=== PATIENT | male | born 1950 | race Caucasian/White ===

== ENCOUNTER → 2017-04-30 | Outpatient (CLI) | payer MEDICARE ==
--- NOTE | 2017-04-30 11:46 | US ---
EXAMINATION TYPE: US duplex aorta DATE OF EXAM: 04/30/2017 COMPARISON: NONE CLINICAL HISTORY: Z78.9 other specific health status. Previous smoker- stopped 25 years ago, no pain, no HTN EXAM MEASUREMENTS: Abdominal Aorta: Proximal: 2.2 x 1.8 cm Mid: 1.5 x 1.9 cm Distal: 1.2 x 1.6 cm Bifurcation: Right - 0.5 x 0.8 cm Left- 0.8 x 0.8 cm No AAA identified as visualized. Grayscale, color Doppler imaging performed of the abdominal aorta IMPRESSION: Abdominal aortic aneurysm is not evident.
--- NOTE | 2017-04-30 11:51 | EST ---
DATE OF SERVICE: 04/30/2017 AGE: 67Y SEX: M HT: 67 WT: 125 lbs. Protocol Rubio: X Other: Stage: II Dur. of Exercise: 7 minutes *Heart Rate Blood Pressure *Rest: 63 Rest: 153/86 * *Max. Achieved: 145 Maximum BP: 206/82 85% PMHR: 128 100% PMHR: 151 *METS: 8.7 INDICATION OF THE STUDY: Chest pain. MEDICATIONS: STRESS DATA: Pretesting physical examination showed the heart rate of 63, pressure is 153/86 mmHg. Baseline EKG showed sinus mechanism. The patient exercised on the treadmill according to Rubio protocol for a total 7 and achieved 8.7 METs. Max heart rate was 145, which is about 96% of maximum predicted heart rate. Maximum blood pressure was 206/82 mmHg. Clinically, the patient did not have any symptoms of chest pain or discomfort during the testing or in the recovery time. The EKG showed about 0.[address] segment changes. CONCLUSION: 1. Excellent exercise capacity. 2. Mildly abnormal EKG in response to exercise, but the changes did not meet the criteria for ischemia.
== END | disposition home or self-care (01) ==
LOC: RADUSMAIN 08:56
PROVIDERS: ATTEND Family Medicine
DX: Z13.6 Encounter for screening for cardiovascular disorders (principal); R06.00 Dyspnea, unspecified
CPT/HCPCS: 93017; 93979

== ENCOUNTER → 2017-05-23 | Outpatient (CLI) | payer MEDICARE ==
--- NOTE | 2017-05-25 12:45 | ECHOF ---
Referral Reason:R06.00 dyspnea MEASUREMENTS -------- HEIGHT: 170.2 cm WEIGHT: 59.0 kg BP: IVSd: 1.1 cm (0.6 - 1.1) LVIDd: 4.1 cm (3.9 - 5.3) LVPWd: 1.0 cm (0.6 - 1.1) LVIDs: 2.6 cm LA Diam: 2.7 cm (2.7 - 3.8) RVIDd: 2.1 cm (< 3.3) LAESV Index (A-L): 17.45 ml/m Ao Diam: 3.3 cm (2.0 - 3.7) LA Diam: 2.9 cm (2.7 - 3.8) AV Cusp: 1.6 cm (1.5 - 2.6) EPSS: 0.4 cm MV E Pako: 0.73 m/s MV DecT: 139 ms MV A Pako: 0.59 m/s MV E/A Ratio: 1.24 RAP: 5.00 mmHg RVSP: 18.32 mmHg MV EF SLOPE: 175.73 mm/s (70 - 150) MV EXCURSION: 23.12 mm (> 18.000) FINDINGS -------- Sinus rhythm. This was a technically good study. LV size, wall thickness and systolic function are normal, with an EF greater than 55%. The right ventricle is normal in size. The right atrial size is normal. There is mild aortic valve sclerosis. There is no evidence of aortic regurgitation. Mild mitral regurgitation is present. Mild prolapse of the posterior mitral valve leaflet. Mild tricuspid regurgitation present. There is no evidence of pulmonary hypertension. The right ventricular systolic pressure, as measured by Doppler, is 18.32mmHg. There is no pulmonic regurgitation present. The aortic root size is normal. There is no pericardial effusion. CONCLUSIONS -------- 1. LV size, wall thickness and systolic function are normal, with an EF greater than 55%. 2. There is no pericardial effusion. 3. There is mild aortic valve sclerosis. 4. Mild mitral regurgitation is present. 5. Mild prolapse of the posterior mitral valve leaflet. 6. Mild tricuspid regurgitation present. 7. There is no evidence of pulmonary hypertension. 8. The right ventricular systolic pressure, as measured by Doppler, is 18.32mmHg. 9. There is no pulmonic regurgitation present. 10. The aortic root size is normal. BOTTLE FILLER: Dang Cole RDCS
== END | disposition home or self-care (01) ==
LOC: RADECHMAIN 12:57
PROVIDERS: ATTEND Family Medicine
DX: I08.1 Rheumatic disorders of both mitral and tricuspid valves (principal)
CPT/HCPCS: 93306

== ENCOUNTER 2018-02-09 17:17 | Emergency (ER) | payer MEDICARE ==
[2018-02-09 18:05] VITALS: TEMP 99.4
[2018-02-09 18:36] LABS: Basophils % (A) 1 %; Eosinophils # (A) 0.1 k/uL (0-0.7); Eosinophils % (A) 1 %; HCT 38.7 % (39.0-53.0); Lymphocytes # (A) 1.6 k/uL (1.0-4.8); Lymphocytes % (A) 23 %; MCH 31.9 pg (25.0-35.0); MCHC 33.6 g/dL (31.0-37.0); Mean Platelet Volume 7.6; Monocytes # (A) 0.5 k/uL (0-1.0); Monocytes % (A) 7 %; Neutrophils # (A) 4.5 k/uL (1.3-7.7); Neutrophils % (A) 64 %; Platelet Count 380 k/uL (150-450); RBC 4.07 m/uL (4.30-5.90); RDW 13.5 % (11.5-15.5)
[2018-02-09 18:46] LABS: ALT 107 U/L (21-72); AST 136 U/L (17-59); Albumin 4.1 g/dL (3.5-5.0); Alkaline Phosphatase 72 U/L (38-126); Anion Gap 12 mmol/L; Blood Urea Nitrogen 23 mg/dL (9-20); Calcium 9.8 mg/dL (8.4-10.2); Carbon Dioxide 27 mmol/L (22-30); Chloride 103 mmol/L (98-107); Glucose 102 mg/dL (74-99); Potassium 4.2 mmol/L (3.5-5.1); Sodium 142 mmol/L (137-145); Total Bilirubin 0.6 mg/dL (0.2-1.3); Total Protein 7.9 g/dL (6.3-8.2)
[2018-02-09] MEDS ORDERED: IPRATROPIUM-ALBUTEROL 3 ML NEB INHALATION STA (18:59)
--- NOTE | 2018-02-09 19:02 | ED ---
General Adult HPI - General Chief complaint: Upper Respiratory Infection Stated complaint: SOB, COUGH, LOW OX Time Seen by Provider: 02/09/18 18:54 Source: patient, RN notes reviewed Mode of arrival: ambulatory Limitations: no limitations - History of Present Illness Initial comments: 67-year-old male presents to the emergency department with a chief complaint of cough. He's had a cough since Friday. He was seen at urgent care he started a nasal spray and doxycycline. He states he continues to have this cough. He states that he is getting a little short of breath with it. He states that he is not having any sputum production. He denies any high fevers. He states that he was concerned due to the continued cough and the fact he does not feels if he is getting much better so he thought that he should be seen. He denies any other symptoms at this time.Patient denies any recent chest pain, back pain , abdominal pain, nausea vomiting, numbness or tingling, dysuria or hematuria, constipation or diarrhea, headaches or visual changes, or any other current symptoms. - Related Data Home Medications Medication Instructions Recorded Confirmed Ascorbic Acid [Vitamin C] 1,000 mg PO DAILY 02/09/18 02/09/18 Cholecalciferol [Vitamin D3] 1,000 unit PO DAILY 02/09/18 02/09/18 Doxycycline Hyclate 100 mg PO BID 02/09/18 02/09/18 Ipratropium Bartlett 0.06%Nasal 1 spray EA NOSTRIL BID 02/09/18 02/09/18 [Atrovent Nasal 0.06%] Previous Rx's Medication Instructions Recorded predniSONE 50 mg PO DAILY #5 tab 02/09/18 Allergies Allergy/AdvReac Type Severity Reaction Status Date / Time No Known Allergies Allergy Verified 02/09/18 19:05 Review of Systems ROS Statement: Those systems with pertinent positive or pertinent negative responses have been documented in the HPI. ROS Other: All systems not noted in ROS Statement are negative. Past Medical History Past Medical History: No Reported History History of Any Multi-Drug Resistant Organisms: None Reported Past Surgical History: Appendectomy, Tonsillectomy Additional Past Surgical History / Comment(s): spleen, non-hodgkins lymphona Past Psychological History: No Psychological Hx Reported Smoking Status: Former smoker Past Alcohol Use History: None Reported Past Drug Use History: None Reported General Exam - General Exam Comments Initial Comments: General: The patient is awake and alert, in no distress, and does not appear acutely ill. Eye: Pupils are equal, round and reactive to light, extra-ocular movements are intact; there is normal conjunctiva bilaterally. No signs of icterus. Ears, nose, mouth and throat: There are moist mucous membranes. Neck: The neck is supple, there is no tenderness. Cardiovascular: There is a regular rate and rhythm. No murmur, rub or gallop is appreciated. Respiratory: Lungs are clear to auscultation, respirations are non-labored, breath sounds are equal. minimal wheezes, no stridor, rales, or rhonchi. Gastrointestinal: Soft, non-distended, non-tender abdomen without masses or organomegaly noted. There is no rebound or guarding present. No CVA tenderness. Bowel sounds are unremarkable. Back: There is no tenderness to palpation in the midline. There is no obvious deformity. No rashes noted. Musculoskeletal: Normal ROM, no tenderness, There is no pedal edema. There is no calf tenderness or swelling. Sensation intact. Pulses equal bilaterally 2+. Neurological: CN II-XII intact, There are no obvious motor or sensory deficits. Coordination appears grossly intact. Speech is normal. Skin: Skin is warm and dry and no rashes or lesions are noted. Psychiatric: Cooperative, appropriate mood & affect, normal judgment. Limitations: no limitations Course Vital Signs 02/09/18 02/09/18 02/09/18 18:01 19:41 19:49 Temperature 99.4 F Pulse Rate 77 76 80 Respiratory 18 Rate Blood Pressure 159/81 O2 Sat by Pulse 98 Oximetry EKG Findings - EKG Comments: EKG Findings:: Normal sinus rhythm with sinus arrhythmia, ventricular 63, IN interval 134, QRS duration 88 Medical Decision Making - Medical Decision Making 67-year-old male presents for cough and shortness of breath. At this time with the cough and the wheezing and the improvement with the breathing treatment. X- rays reviewed. At this time we discussed most likely acute bronchitis. We did discuss return parameters and follow-up and all questions. Patient stated that he understood and he is given this plan. He states he is feeling much better. He has an inhaler at home that he states he will start using. We will add steroids. Patient is in agreement this plan all questions have been answered. He will be discharged. - Lab Data Result diagrams: 02/09/18 18:23 02/09/18 18:23 Lab Results 02/09/18 02/09/18 02/09/18 Range/Units 18:23 18:23 19:10 WBC 7.0 (3.8-10.6) k/uL RBC 4.07 L (4.30-5.90) m/uL Hgb 13.0 (13.0-17.5) gm/dL Hct 38.7 L (39.0-53.0) % MCV 95.0 (80.0-100.0) fL MCH 31.9 (25.0-35.0) pg MCHC 33.6 (31.0-37.0) g/dL RDW 13.5 (11.5-15.5) % Plt Count 380 (150-450) k/uL Neutrophils % 64 % Lymphocytes % 23 % Monocytes % 7 % Eosinophils % 1 % Basophils % 1 % Neutrophils # 4.5 (1.3-7.7) k/uL Lymphocytes # 1.6 (1.0-4.8) k/uL Monocytes # 0.5 (0-1.0) k/uL Eosinophils # 0.1 (0-0.7) k/uL Basophils # 0.0 (0-0.2) k/uL Sodium 142 (137-145) mmol/L Potassium 4.2 (3.5-5.1) mmol/L Chloride 103 (98-107) mmol/L Carbon Dioxide 27 (22-30) mmol/L Anion Gap 12 mmol/L BUN 23 H (9-20) mg/dL Creatinine 0.70 (0.66-1.25) mg/dL Est GFR (CKD-EPI)AfAm >90 (>60 ml/min/1.73 sqM) Est GFR (CKD-EPI)NonAf >90 (>60 ml/min/1.73 sqM) Glucose 102 H (74-99) mg/dL Calcium 9.8 (8.4-10.2) mg/dL Total Bilirubin 0.6 (0.2-1.3) mg/dL AST 136 H (17-59) U/L ALT 107 H (21-72) U/L Alkaline Phosphatase 72 (38-126) U/L Total Protein 7.9 (6.3-8.2) g/dL Albumin 4.1 (3.5-5.0) g/dL Influenza Type A RNA Not Detected (Not Detectd) Influenza Type B (PCR) Not Detected (Not Detectd) - Radiology Data Radiology results: report reviewed, image reviewed Disposition Clinical Impression: Acute bronchitis Disposition: HOME SELF-CARE Condition: Stable Instructions: Acute Bronchitis (ED) Additional Instructions: Please use medication as discussed. Please follow up with family doctor if symptoms have not improved over the next two days. Please return to the emergency room if your symptoms increase or worsen or for any other concerns. Prescriptions: predniSONE 50 mg PO DAILY #5 tab Referrals: Roby Connolly MD [Primary Care Provider] - 1-2 days Time of Disposition: 19:58
--- NOTE | 2018-02-09 19:12 | XR ---
EXAMINATION TYPE: XR chest 2V DATE OF EXAM: 02/09/2018 COMPARISON: NONE HISTORY: Cough TECHNIQUE: Frontal and lateral views of the chest are obtained. FINDINGS: There is no heart failure nor confluent pneumonic infiltrate. There is coarsening of inter stitial pulmonary markings. Heart size is normal. Mediastinum is normal. There is no pleural effusion . There is mild pulmonary hyperinflation. IMPRESSION: COPD and pulmonary fibrosis. Normal heart.
[2018-02-09 20:09] VITALS: RESP 20
[2018-02-09 20:11] VITALS: BP 159/73; PULSE 94
== END 2018-02-09 20:11 | disposition home or self-care (01) ==
LOC: EC 17:17
DX: J20.9 Acute bronchitis, unspecified (principal); Z87.891 Personal history of nicotine dependence; Z85.72 Personal history of non-Hodgkin lymphomas; Z79.899 Other long term (current) drug therapy
CPT/HCPCS: 36415; 71046; 80053; 85025; 87502; 93005; 94640; 99284

== ENCOUNTER → 2020-05-30 | Outpatient (CLI) | payer MEDICARE ==
--- NOTE | 2020-05-31 06:58 | US ---
EXAMINATION TYPE: US kidneys/renal and bladder DATE OF EXAM: 05/30/2020 COMPARISON: NONE CLINICAL HISTORY: R94.4 abn renal function. Abnormal renal function test EXAM MEASUREMENTS: Right Kidney: 8.4 x 3.0 x 3.2 cm Left Kidney: 9.2 x 4.5 x 3.7 cm Right Kidney: Cortical thinning Left Kidney: No hydronephrosis or masses seen Bladder: wnl Bilateral Jets seen: Yes There is no evidence for hydronephrosis at this point in time. No nephrolithiasis is seen. No arvind s are identified. The urinary bladder is anechoic. Bilateral ureteral jets are seen. IMPRESSION: Renal cortical thinning noted bilaterally right greater than left. Otherwise unremarkable study.
== END | disposition home or self-care (01) ==
LOC: RADUSWWP 15:52
PROVIDERS: ATTEND Family Medicine
DX: N28.89 Other specified disorders of kidney and ureter (principal)
CPT/HCPCS: 76770

== ENCOUNTER 2021-10-03 20:03 | Emergency (ER) | payer MEDICARE ==
[2021-10-03 20:22] VITALS: TEMP 97.9
[2021-10-03] MEDS ORDERED: IPRATROPIUM-ALBUTEROL 3 ML NEB INHALATION STA (21:25)
[2021-10-03] MEDS ORDERED: SODIUM CHLORIDE 0.9% 1,000 ML IV STA (21:25)
[2021-10-03] MEDS ORDERED: hydrALAZINE HCL 20 MG/ML 1 ML VIAL IVP STA (21:26)
--- NOTE | 2021-10-03 21:26 | ED ---
SOB HPI - General Chief Complaint: Shortness of Breath Stated Complaint: High BP, SOB,CKD Time Seen by Provider: 10/03/21 21:20 Source: patient, RN notes reviewed, old records reviewed Mode of arrival: ambulatory Limitations: no limitations - History of Present Illness Initial Comments: This is a 71-year-old male DF for evaluation of shortness of breath. Patient states shortness of breath began afterblood pressure was significantly elevated any significant of concern for his kidney disease. History of stage IV kidney disease which is been progressively worsening. Patient states he's never had such elevated blood sugar today does admit to causing him anxiety and shortness of breath. Otherwise no recent significant symptoms, no chest pain or shortness of breath or abdominal pain. No fevers cough or congestion. Patient symptoms are relatively resolved upon arrival to the ER MD Complaint: shortness of breath, anxiety -: hour(s) Severity: moderate Severity scale (1-10): 4 Quality: dull Consistency: constant, now resolved Improves With: nothing Worsens With: nothing Known History Of: other (Kidney disease) Context: anxiety Associated Symptoms: denies other symptoms - Related Data Home Medications Medication Instructions Recorded Confirmed Cholecalciferol (Vitamin D3) 125 mcg PO DAILY 10/03/21 10/03/21 [Vitamin D3 (125 MCG = 5,000 IU)] Allergies Allergy/AdvReac Type Severity Reaction Status Date / Time No Known Allergies Allergy Verified 10/03/21 22:20 Review of Systems ROS Statement: Those systems with pertinent positive or pertinent negative responses have been documented in the HPI. ROS Other: All systems not noted in ROS Statement are negative. Past Medical History Past Medical History: Cancer, Renal Disease Additional Past Medical History / Comment(s): lymphoma, stage 4 kidney disease History of Any Multi-Drug Resistant Organisms: None Reported Past Surgical History: Appendectomy, Tonsillectomy Additional Past Surgical History / Comment(s): spleen, non-hodgkins lymphona Past Psychological History: No Psychological Hx Reported Smoking Status: Former smoker Past Alcohol Use History: None Reported Past Drug Use History: None Reported General Exam Limitations: no limitations General appearance: alert, in no apparent distress Head exam: Present: atraumatic, normocephalic, normal inspection Eye exam: Present: normal appearance, PERRL, EOMI. Absent: scleral icterus, conjunctival injection, periorbital swelling ENT exam: Present: normal exam, mucous membranes moist Neck exam: Present: normal inspection. Absent: tenderness, meningismus, lymphadenopathy Respiratory exam: Present: normal lung sounds bilaterally. Absent: respiratory distress, wheezes, rales, rhonchi, stridor Cardiovascular Exam: Present: regular rate, normal rhythm, normal heart sounds. Absent: systolic murmur, diastolic murmur, rubs, gallop, clicks GI/Abdominal exam: Present: soft, normal bowel sounds. Absent: distended, tenderness, guarding, rebound, rigid Extremities exam: Present: normal inspection, full ROM, normal capillary refill. Absent: tenderness, pedal edema, joint swelling, calf tenderness Back exam: Present: normal inspection Neurological exam: Present: alert, oriented X3, CN II-XII intact Psychiatric exam: Present: normal affect, normal mood Skin exam: Present: warm, dry, intact, normal color. Absent: rash Course Vital Signs 10/03/21 10/03/21 10/03/21 20:19 20:30 21:53 Temperature 97.9 F Pulse Rate 88 58 L Respiratory 20 18 Rate Blood Pressure 185/88 O2 Sat by Pulse 98 Oximetry 10/03/21 10/03/21 10/03/21 21:59 22:27 23:03 Temperature Pulse Rate 80 82 Respiratory 18 Rate Blood Pressure 164/83 145/73 O2 Sat by Pulse 98 Oximetry 10/04/21 00:49 Temperature Pulse Rate 71 Respiratory 18 Rate Blood Pressure 148/80 O2 Sat by Pulse 97 Oximetry - Reevaluation(s) Reevaluation #1: 10/04/21 02:24 Medical record is reviewed Reevaluation #2: 10/04/21 02:24 Patient remains asymptomatic here in the ER Reevaluation #3: 10/04/21 02:24 Patient is informed results questions are answered Medical Decision Making - Medical Decision Making 71 male to the emergency department for evaluation. Patient came in for shortness of breath elevated blood pressure, blood pressures currently resolved and patient can be discharged home - Lab Data Result diagrams: 10/03/21 21:45 10/03/21 21:45 Lab Results 10/03/21 10/03/21 10/03/21 Range/Units 21:45 21:45 21:45 WBC 5.6 (3.8-10.6) k/uL RBC 3.71 L (4.30-5.90) m/uL Hgb 11.8 L (13.0-17.5) gm/dL Hct 36.8 L (39.0-53.0) % MCV 99.3 (80.0-100.0) fL MCH 31.9 (25.0-35.0) pg MCHC 32.1 (31.0-37.0) g/dL RDW 14.0 (11.5-15.5) % Plt Count 263 (150-450) k/uL MPV 8.1 Neutrophils % 62 % Lymphocytes % 24 % Monocytes % 7 % Eosinophils % 2 % Basophils % 1 % Neutrophils # 3.5 (1.3-7.7) k/uL Lymphocytes # 1.3 (1.0-4.8) k/uL Monocytes # 0.4 (0-1.0) k/uL Eosinophils # 0.1 (0-0.7) k/uL Basophils # 0.1 (0-0.2) k/uL PT 9.9 (9.0-12.0) sec INR 0.9 (<1.2) APTT 21.6 L (22.0-30.0) sec Sodium 138 (137-145) mmol/L Potassium 4.5 (3.5-5.1) mmol/L Chloride 105 (98-107) mmol/L Carbon Dioxide 24 (22-30) mmol/L Anion Gap 9 mmol/L BUN 37 H (9-20) mg/dL Creatinine 2.00 H (0.66-1.25) mg/dL Est GFR (CKD-EPI)AfAm 37 (>60 ml/min/1.73 sqM) Est GFR (CKD-EPI)NonAf 32 (>60 ml/min/1.73 sqM) Glucose 113 H (74-99) mg/dL Plasma Lactic Acid Corby (0.7-2.0) mmol/L Calcium 9.7 (8.4-10.2) mg/dL Magnesium 1.8 (1.6-2.3) mg/dL Total Bilirubin 0.3 (0.2-1.3) mg/dL AST 22 (17-59) U/L ALT 9 (4-49) U/L Alkaline Phosphatase 60 (38-126) U/L Troponin I (0.000-0.034) ng/mL NT-Pro-B Natriuret Pep pg/mL Total Protein 7.8 (6.3-8.2) g/dL Albumin 4.3 (3.5-5.0) g/dL Coronavirus (PCR) (Not Detectd) 10/03/21 10/03/21 10/03/21 Range/Units 21:45 21:45 21:45 WBC (3.8-10.6) k/uL RBC (4.30-5.90) m/uL Hgb (13.0-17.5) gm/dL Hct (39.0-53.0) % MCV (80.0-100.0) fL MCH (25.0-35.0) pg MCHC (31.0-37.0) g/dL RDW (11.5-15.5) % Plt Count (150-450) k/uL MPV Neutrophils % % Lymphocytes % % Monocytes % % Eosinophils % % Basophils % % Neutrophils # (1.3-7.7) k/uL Lymphocytes # (1.0-4.8) k/uL Monocytes # (0-1.0) k/uL Eosinophils # (0-0.7) k/uL Basophils # (0-0.2) k/uL PT (9.0-12.0) sec INR (<1.2) APTT (22.0-30.0) sec Sodium (137-145) mmol/L Potassium (3.5-5.1) mmol/L Chloride (98-107) mmol/L Carbon Dioxide (22-30) mmol/L Anion Gap mmol/L BUN (9-20) mg/dL Creatinine (0.66-1.25) mg/dL Est GFR (CKD-EPI)AfAm (>60 ml/min/1.73 sqM) Est GFR (CKD-EPI)NonAf (>60 ml/min/1.73 sqM) Glucose (74-99) mg/dL Plasma Lactic Acid Corby 1.4 (0.7-2.0) mmol/L Calcium (8.4-10.2) mg/dL Magnesium (1.6-2.3) mg/dL Total Bilirubin (0.2-1.3) mg/dL AST (17-59) U/L ALT (4-49) U/L Alkaline Phosphatase (38-126) U/L Troponin I <0.012 (0.000-0.034) ng/mL NT-Pro-B Natriuret Pep 201 pg/mL Total Protein (6.3-8.2) g/dL Albumin (3.5-5.0) g/dL Coronavirus (PCR) (Not Detectd) 10/04/21 Range/Units 00:09 WBC (3.8-10.6) k/uL RBC (4.30-5.90) m/uL Hgb (13.0-17.5) gm/dL Hct (39.0-53.0) % MCV (80.0-100.0) fL MCH (25.0-35.0) pg MCHC (31.0-37.0) g/dL RDW (11.5-15.5) % Plt Count (150-450) k/uL MPV Neutrophils % % Lymphocytes % % Monocytes % % Eosinophils % % Basophils % % Neutrophils # (1.3-7.7) k/uL Lymphocytes # (1.0-4.8) k/uL Monocytes # (0-1.0) k/uL Eosinophils # (0-0.7) k/uL Basophils # (0-0.2) k/uL PT (9.0-12.0) sec INR (<1.2) APTT (22.0-30.0) sec Sodium (137-145) mmol/L Potassium (3.5-5.1) mmol/L Chloride (98-107) mmol/L Carbon Dioxide (22-30) mmol/L Anion Gap mmol/L BUN (9-20) mg/dL Creatinine (0.66-1.25) mg/dL Est GFR (CKD-EPI)AfAm (>60 ml/min/1.73 sqM) Est GFR (CKD-EPI)NonAf (>60 ml/min/1.73 sqM) Glucose (74-99) mg/dL Plasma Lactic Acid Corby (0.7-2.0) mmol/L Calcium (8.4-10.2) mg/dL Magnesium (1.6-2.3) mg/dL Total Bilirubin (0.2-1.3) mg/dL AST (17-59) U/L ALT (4-49) U/L Alkaline Phosphatase (38-126) U/L Troponin I (0.000-0.034) ng/mL NT-Pro-B Natriuret Pep pg/mL Total Protein (6.3-8.2) g/dL Albumin (3.5-5.0) g/dL Coronavirus (PCR) Not Detected (Not Detectd) - EKG Data -: EKG Interpreted by Me (EKG shows sinus rhythm 66 GA 154 QRS 78 QTc 402) - Radiology Data Radiology results: report reviewed (Chest x-rays negative for acute disease), image reviewed Disposition Clinical Impression: Hypertension Disposition: HOME SELF-CARE Condition: Good Instructions (If sedation given, give patient instructions): Hypertension (ED) Is patient prescribed a controlled substance at d/c from ED?: No Referrals: Roby Connolly MD [Primary Care Provider] - 1-2 days
[2021-10-03 22:09] VITALS: RESP 18
[2021-10-03 22:10] LABS: Basophils # (A) 0.1 k/uL (0-0.2); Basophils % (A) 1 %; Eosinophils # (A) 0.1 k/uL (0-0.7); Eosinophils % (A) 2 %; HCT 36.8 % (39.0-53.0); HGB 11.8 gm/dL (13.0-17.5); Lymphocytes # (A) 1.3 k/uL (1.0-4.8); Lymphocytes % (A) 24 %; MCH 31.9 pg (25.0-35.0); MCHC 32.1 g/dL (31.0-37.0); MCV 99.3 fL (80.0-100.0); Mean Platelet Volume 8.1; Monocytes # (A) 0.4 k/uL (0-1.0); Monocytes % (A) 7 %; Neutrophils # (A) 3.5 k/uL (1.3-7.7); Neutrophils % (A) 62 %; Platelet Count 263 k/uL (150-450); RBC 3.71 m/uL (4.30-5.90); WBC 5.6 k/uL (3.8-10.6)
--- NOTE | 2021-10-03 22:12 | XR ---
EXAMINATION TYPE: XR chest 2V DATE OF EXAM: 10/03/2021 COMPARISON: NONE HISTORY: Difficulty breathing TECHNIQUE: 2 views FINDINGS: Heart is normal. Lungs are clear of infiltrate. There is no heart failure. Costophrenic ang les are clear. There are chest leads. Bony thorax is intact IMPRESSION: No active cardiopulmonary disease. Normal heart. No change.
[2021-10-03] MEDS ORDERED: ONDANSETRON 4 MG/2 ML VIAL IVP STA (22:20)
[2021-10-03 22:23] LABS: Albumin 4.3 g/dL (3.5-5.0); Calcium 9.7 mg/dL (8.4-10.2); Magnesium 1.8 mg/dL (1.6-2.3); Potassium 4.5 mmol/L (3.5-5.1); Total Bilirubin 0.3 mg/dL (0.2-1.3); Total Protein 7.8 g/dL (6.3-8.2)
[2021-10-03 22:26] LABS: INR 0.9 (<1.2); Partial Thromboplastin Time 21.6 sec (22.0-30.0); Prothrombin Time 9.9 sec (9.0-12.0)
[2021-10-04 00:50] VITALS: BP 148/80; PULSE 71
== END 2021-10-04 00:50 | disposition home or self-care (01) ==
LOC: EC 20:03
DX: I10 Essential (primary) hypertension (principal); R06.02 Shortness of breath; Z87.891 Personal history of nicotine dependence; Z20.822 Contact with and (suspected) exposure to COVID-19
CPT/HCPCS: 36415; 94640; 93005; 83880; 80053; 83605; 83735; 84484; 85025; 85610; 85730; 87635; 71046; 99285; 96374; 96375; 96361; J0360; J2405

== ENCOUNTER → 2021-11-16 | Outpatient (CLI) | payer MEDICARE ==
--- NOTE | 2021-11-16 15:22 | CT ---
EXAMINATION TYPE: CT brain wo con DATE OF EXAM: 11/16/2021 COMPARISON: None HISTORY: weakness, left arm numbness CT DLP: 978.2 mGycm Automated exposure control for dose reduction was used. FINDINGS: Moderate generalized degenerative change with low-attenuation in the white matter. No acute hemorrhag e or mass effect. Calvarium intact. Orbits are symmetric. Craniocervical junction maintained. Sella turcica has a normal appearance. IMPRESSION: DEGENERATIVE AND NONSPECIFIC WHITE MATTER CHANGES MOST TYPICAL OF REMOTE ISCHEMIA.
== END | disposition home or self-care (01) ==
LOC: RADCTMAIN 14:59
PROVIDERS: ATTEND Family Medicine
DX: R90.82 White matter disease, unspecified (principal)
CPT/HCPCS: 70450

== ENCOUNTER → 2022-05-06 | Outpatient (CLI) | payer MEDICARE ==
--- NOTE | 2022-05-06 12:50 | US ---
EXAMINATION TYPE: US carotid duplex BILAT DATE OF EXAM: 05/06/2022 COMPARISON: NONE CLINICAL HISTORY: 72-year-old male I63.9 CEREBRAL INFARCTION, UNSPECIFIED. CVA. TECHNIQUE: Carotid duplex ultrasound examination. Indirect Doppler criteria was utilized. FINDINGS: EXAM MEASUREMENTS: RIGHT: Peak Systolic Velocity (PSV) cm/sec ----- Right CCA: 80.8 ----- Right ICA: 117.1 ----- Right ECA: 112.8 ICA/CCA ratio: 1.4 RIGHT: End Diastole cm/sec ----- Right CCA: 22.7 ----- Right ICA: 38.7 ----- Right ECA: 11 LEFT: Peak Systolic Velocity (PSV) cm/sec ----- Left CCA: 95.3 ----- Left ICA: 121.5 ----- Left ECA: 85.2 ICA/CCA ratio: 1.3 LEFT: End Diastole cm/sec ----- Left CCA: 24.1 ----- Left ICA: 45.9 ----- Left ECA: 11 VERTEBRALS (direction of flow): Right Vertebral: Antegrade Left Vertebral: Antegrade Rhythm: Normal Mail Technician notes: No elevated velocities IMPRESSION: No hemodynamically significant internal carotid artery stenosis on either side. Criteria for Assigning % of Stenosis / Diameter reduction (Estimation based on the indirect measurements of the internal carotid artery velocities (ICA PSV). 1. Normal (no stenosis)=ICA PSV < 125 cm/s: ratio < 2.0: ICA EDV<40 cm/s. 2. Less than 50% stenosis=ICA PSV < 125 cm/s: ratio < 2.0: ICA EDV<40 cm/s. 3. 50 to 69% stenosis=ICA PSV of 125 to 230 cm/s: ration 2.0 ? 4.0: ICA EDV 40-100 cm/s. 4. Greater than 70% stenosis to near occlusion= ICA PSV > 230 cm/s: ratio > 4.0: ICA EDV > 100 cm/s. 5. Near occlusion= ICA PSV velocities may be low or undetectable: variable ratio and ICA EDV. 6. Total occlusion=unable to detect flow.
== END | disposition home or self-care (01) ==
LOC: RADUSWWP 08:50
PROVIDERS: ATTEND Psychiatry & Neurology Neurology
DX: I63.89 Other cerebral infarction (principal)
CPT/HCPCS: 93880

== ENCOUNTER 2022-06-18 21:56 | Emergency (ER) | payer MEDICARE ==
[2022-06-18 22:20] VITALS: RESP 16; TEMP 98.2
--- NOTE | 2022-06-18 22:54 | ED ---
Extremity Problem HPI - General Chief complaint: Extremity Problem,Nontraumatic Stated complaint: Elevated D-Dimer Time Seen by Provider: 06/18/22 22:23 Source: patient Mode of arrival: ambulatory Limitations: no limitations - Related Data Home Medications Medication Instructions Recorded Confirmed Cholecalciferol (Vitamin D3) 125 mcg PO DAILY 10/03/21 10/03/21 [Vitamin D3 (125 MCG = 5,000 IU)] Allergies Allergy/AdvReac Type Severity Reaction Status Date / Time No Known Allergies Allergy Verified 06/18/22 22:17 Review of Systems ROS Statement: Those systems with pertinent positive or pertinent negative responses have been documented in the HPI. ROS Other: All systems not noted in ROS Statement are negative. Past Medical History Past Medical History: Cancer, Renal Disease Additional Past Medical History / Comment(s): lymphoma, stage 4 kidney disease History of Any Multi-Drug Resistant Organisms: None Reported Past Surgical History: Appendectomy, Tonsillectomy Additional Past Surgical History / Comment(s): spleen, non-hodgkins lymphona Past Psychological History: No Psychological Hx Reported Smoking Status: Former smoker Past Alcohol Use History: None Reported Past Drug Use History: None Reported General Exam Limitations: no limitations Course Vital Signs 06/18/22 06/18/22 22:18 23:49 Temperature 98.2 F Pulse Rate 90 74 Respiratory 16 Rate Blood Pressure 149/81 134/75 O2 Sat by Pulse 97 97 Oximetry Disposition Clinical Impression: Bilateral leg pain Disposition: HOME SELF-CARE Condition: Good Instructions (If sedation given, give patient instructions): Leg Pain (ED) Is patient prescribed a controlled substance at d/c from ED?: No Referrals: Roby Connolly MD [Primary Care Provider] - 1-2 days
--- NOTE | 2022-06-18 23:54 | US ---
EXAMINATION TYPE: US venous doppler duplex LE DATE OF EXAM: 06/18/2022 10:54 PM COMPARISON: NONE CLINICAL HISTORY: DVT. Elevated D-Dimer, patient on blood thinners SIDE PERFORMED: Bilateral TECHNIQUE: The lower extremity deep venous system is examined utilizing real time linear array sonog demond with graded compression, doppler sonography and color-flow sonography. VESSELS IMAGED: Common Femoral Vein Deep Femoral Vein Greater Saphenous Vein * Femoral Vein Popliteal Vein Small Saphenous Vein * Proximal Calf Veins (* superficial vessels) Right Leg: Appears negative for DVT Left Leg: Appears negative for DVT IMPRESSION: No evidence of deep vein thrombosis in both legs.
[2022-06-19 00:29] VITALS: BP 131/79; PULSE 81
== END 2022-06-19 00:29 | disposition home or self-care (01) ==
LOC: EC 21:56
DX: M79.604 Pain in right leg (principal); M79.605 Pain in left leg; Z87.891 Personal history of nicotine dependence
CPT/HCPCS: 93970; 99283

== ENCOUNTER 2023-08-06 07:19 | Day surgery (SDC) | payer MEDICARE ==
[2023-08-06] MEDS ORDERED: LACTATED RINGERS 1,000 ML IV ONE (07:35)
[2023-08-06] MEDS ORDERED: LIDOCAINE 1% (10MG/ML) FOR IV START INTRADERMA PRN (07:36)
[2023-08-06] MEDS ORDERED: LACTATED RINGERS 1,000 ML IV SCH (07:36)
[2023-08-06 07:41] VITALS: RESP 18; TEMP 97
[2023-08-06] MEDS ORDERED: LIDOCAINE 2% INJ 20 MG/ML (2 ML VIAL) ONE (08:14)
[2023-08-06] MEDS ORDERED: PROPOFOL 10 MG/ML 20 ML VIAL IV ONE (08:14)
--- NOTE | 2023-08-06 08:47 | P.PCN ---
Date of Procedure: 08/06/23 Procedure(s) Performed: Brief history: Patient is a pleasant 73-year-old white male scheduled for an elective upper endoscopy as well as colonoscopy as a part of evaluation of anemia and dysphagia to solids/GERD/screening for colon cancer Procedure performed: Esophagogastroduodenoscopy and dilation Colonoscopy with biopsy Preoperative diagnosis: GERD/intermittent dysphagia to solids Screening for colon cancer Anesthesia: MAC Procedure: After informed consent was obtained from the patient was brought into the endoscopy unit and IV sedation was administered by anesthesia under continuous monitoring. Initially upper endoscopy was done. The Olympus GF 160 video endoscope was inserted inserted into the mouth and esophagus intubated without any difficulty and was gradually advanced into the stomach and duodenum and carefully examined. The bulb and second part of the duodenum appeared normal. The scope was then withdrawn into the stomach adequately insufflated with air and upon careful examination the antrum and body, cardia and fundus appeared normal. The scope was then withdrawn into the esophagus. Small hiatal hernia noted. There was a distal esophageal Schatzki's ring identified and this was dilated using 15-18 mm TTS balloon in a sequential fashion for 60 seconds. Following the dilation there was some oozing at the site of dilation. The GE junction was located at 38 cm to the incisors. It appeared regular with no erythema erosions or ulcerations. Rest of the esophagus appeared normal. Patient tolerated the procedure well. At this time the patient continued to remain sedation. Initial digital rectal examination was normal. Olympus CF 160 video colonoscope was then inserted into the rectum and gradually advanced to the cecum without any difficulty. Careful examination was performed as the scope was gradually being withdrawn. The prep was excellent. The cecum, ascending colon, transverse colon, descending colon, sigmoid colon and rectum appeared normal. There was a 3 mm proximal rectal polyp that was removed by cold biopsy. Retroflexion was performed in the rectum and no lesions were noted. Patient tolerated the procedure well. Impression: 1. Upper endoscopy revealed small hiatal hernia and distal esophagus a status post balloon dilation using 15-18 mm TTS balloon as described above 2. Colonoscopy revealed 3 mm proximal rectal polyp status post cold biopsy. Rest of the colon appeared normal Recommendations: Findings of this examination were discussed with the patient as well as his family. He was advised to remain on clear liquids for 2 hours. Follow with the biopsy results and if the biopsy result, he can have a repeat colonoscopy in 5 years.
[2023-08-06 09:17] VITALS: BP 120/73; PULSE 81
== END 2023-08-06 09:38 | disposition home or self-care (01) ==
LOC: ORWHC2ENDO 07:19
PROVIDERS: ATTEND Internal Medicine Gastroenterology
DX: Z12.11 Encounter for screening for malignant neoplasm of colon (principal); K62.1 Rectal polyp; K44.9 Diaphragmatic hernia without obstruction or gangrene; K22.2 Esophageal obstruction; K21.9 Gastro-esophageal reflux disease without esophagitis; I12.9 Hypertensive chronic kidney disease with stage 1 through stage 4 chronic kidney disease, or unspecified chronic kidney disease; N18.4 Chronic kidney disease, stage 4 (severe); Z79.52 Long term (current) use of systemic steroids; Z79.899 Other long term (current) drug therapy; Z87.891 Personal history of nicotine dependence
CPT/HCPCS: 88305; 45380; 43249; J2704; J2001; C1726

== ENCOUNTER → 2023-12-29 | Outpatient (CLI) | payer MEDICARE ==
--- NOTE | 2023-12-29 10:45 | US ---
EXAMINATION TYPE: US arterial LE single level DATE OF EXAM: 12/29/2023 10:33 AM CLINICAL INDICATION: Male, 73 years old with history of I73.9 PERIPHERAL VASCULAR DISEASE; History of: Smoker: Former x 30 years Hypertension: Controlled Diabetic: No Hyperlipidemia: Uncontrolled TIA/CVA: Minor Previous Vascular Surgery: No CAD: No CO: No Vascular Ulcers: Few on right saldivar Claudication: Yes; Worsening over the last few months; Walks all day for work, Severe pain by the en d of the shift. Gangrene: No Doppler Waveforms: Right: Multiphasic, monophasic waveforms in the digit Left: Multiphasic, monophasic waveforms in the digit Pulse Volume Recording: NA Pressure Gradients: NA Right Brachial Pressure: 131 Left Brachial Pressure: 144 Ankle-Brachial Indices: Right: 1.20 Left: 1.16 Toe Brachial Indices: Right: ? NC Left: ? NC IMPRESSION: Normal ankle-brachial indices bilaterally.
== END | disposition home or self-care (01) ==
LOC: RADUSWWP 10:07
PROVIDERS: ATTEND Family Medicine
DX: I73.9 Peripheral vascular disease, unspecified (principal); I10 Essential (primary) hypertension; E78.5 Hyperlipidemia, unspecified; Z87.891 Personal history of nicotine dependence; Z86.73 Personal history of transient ischemic attack (TIA), and cerebral infarction without residual deficits
CPT/HCPCS: 93922

== ENCOUNTER 2024-06-10 21:52 | Inpatient (IN) | payer MEDICARE ==
[2024-06-10] MEDS: AMPICILLIN-SULBACTAM 3 GM in SODIUM CHLORIDE 0.9% 100 ML IVPB STA (23:00)
[2024-06-10 23:17] LABS: ALT 10 U/L (4-49); AST 36 U/L (17-59); African American GFR (CKD) 41 (>60 ml/min/1.73 sqM); Albumin 4.2 g/dL (3.5-5.0); Alkaline Phosphatase 65 U/L (38-126); Anion Gap 10 mmol/L; Blood Urea Nitrogen 37 mg/dL (9-20); Calcium 9.4 mg/dL (8.4-10.2); Carbon Dioxide 21 mmol/L (22-30); Chloride 108 mmol/L (98-107); Glucose 103 mg/dL (74-99); Non-African American GFR(CKD) 35 (>60 ml/min/1.73 sqM); Potassium 4.2 mmol/L (3.5-5.1); Sodium 139 mmol/L (137-145); Total Bilirubin 0.5 mg/dL (0.2-1.3); Total Protein 7.6 g/dL (6.3-8.2)
[2024-06-10 23:45] LABS: Basophils % (A) 1 %; Eosinophils % (A) 5 %; HCT 38.3 % (39.0-53.0); HGB 12.2 gm/dL (13.0-17.5); Lymphocytes % (A) 25 %; MCHC 31.9 g/dL (31.0-37.0); MCV 100.3 fL (80.0-100.0); Mean Platelet Volume 8.4; Monocytes % (A) 8 %; Neutrophils % (A) 59 %; Platelet Count 347 k/uL (150-450); RBC 3.81 m/uL (4.30-5.90); RDW 13.4 % (11.5-15.5); WBC 7.2 k/uL (3.8-10.6)
[2024-06-10 23:46] LABS: Basophils # (A) 0.1 k/uL (0-0.2); Eosinophils # (A) 0.3 k/uL (0-0.7); Lymphocytes # (A) 1.8 k/uL (1.0-4.8); Monocytes # (A) 0.5 k/uL (0-1.0); Neutrophils # (A) 4.2 k/uL (1.3-7.7)
--- NOTE | 2024-06-11 00:12 | ED ---
Animal Bite HPI - General Chief Complaint: Animal Bite Stated Complaint: Cat Bite Time Seen by Provider: 06/10/24 22:24 Source: patient Mode of arrival: ambulatory Limitations: no limitations - History of Present Illness Initial Comments: 74-year-old male presenting with chief complaint of cat bite. Patient was bitten by his cat 1 week ago. Over the weekend he noticed that it was getting red and painful. He started oral antibiotics from urgent care on Friday. He went back today because of worsening symptoms, he did have an incision made, however only blood was expressed. He was given a shot of Rocephin. Instructed to report to the ER if things did not improve by tomorrow. Patient was concerned due to worsening symptoms and presents tonight. No fevers. No nausea or vomiting. No red streaking of the arm. - Related Data Home Medications Medication Instructions Recorded Confirmed Cholecalciferol (Vitamin D3) 125 mcg PO DAILY 10/03/21 08/05/23 [Vitamin D3 (125 MCG = 5,000 IU)] Clopidogrel Bisulfate [Clopidogrel] 75 mg PO DAILY 08/05/23 08/05/23 Unk Multi Vitamin 1 tab PO DAILY 08/05/23 08/05/23 amLODIPine BESYLATE 5 mg PO DAILY 08/05/23 08/06/23 Allergies Allergy/AdvReac Type Severity Reaction Status Date / Time No Known Allergies Allergy Verified 08/06/23 07:41 Review of Systems ROS Statement: Those systems with pertinent positive or pertinent negative responses have been documented in the HPI. ROS Other: All systems not noted in ROS Statement are negative. Past Medical History Past Medical History: Cancer, Hypertension, Prostate Disorder, Renal Disease Additional Past Medical History / Comment(s): lymphoma ( tx with radiation, caused kidney issues), stage 4 kidney disease, polyneuropathy(finger and lips numb) History of Any Multi-Drug Resistant Organisms: None Reported Past Surgical History: Appendectomy, Cholecystectomy, Tonsillectomy Additional Past Surgical History / Comment(s): spleen, non-hodgkins lymphona, TURP. colonoscopy Past Anesthesia/Blood Transfusion Reactions: No Reported Reaction Past Psychological History: No Psychological Hx Reported Smoking Status: Former smoker - Past Family History Mother Family Medical History: Coronary Artery Disease (CAD) Sister(s) Additional Family Medical History / Comment(s): diverticulitis, kidney stones. another sister with kidney issues General Exam Limitations: no limitations General appearance: alert, in no apparent distress Head exam: Present: atraumatic, normocephalic Eye exam: Present: normal appearance, EOMI Neck exam: Present: normal inspection. Absent: meningismus Respiratory exam: Absent: respiratory distress Cardiovascular Exam: Present: regular rate Left Forearm Wrist exam: Present: full ROM, tenderness, swelling, erythema Neurological exam: Present: alert, oriented X3 Psychiatric exam: Present: normal affect, normal mood Skin exam: Present: erythema Course Vital Signs 06/10/24 06/11/24 22:02 02:40 Temperature 98.2 F 97.5 F L Pulse Rate 80 69 Respiratory 20 18 Rate Blood Pressure 152/79 136/78 O2 Sat by Pulse 97 97 Oximetry Medical Decision Making - Medical Decision Making Was pt. sent in by a medical professional or institution (, PA, [employer], urgent care, hospital, or penitentiary...) When possible be specific @ -No Did you speak to anyone other than the patient for history (EMS, parent, family, police, friend...)? What history was obtained from this source @ -No Did you review nursing and triage notes (agree or disagree)? Why? @ -I reviewed and agree with nursing and triage notes Were old charts reviewed (outside hosp., previous admission, EMS record, old EKG, old radiological studies, urgent care reports/EKG's, penitentiary records)? Report findings @ -No old charts were reviewed Differential Diagnosis (chest pain, altered mental status, abdominal pain women, abdominal pain men, vaginal bleeding, weakness, fever, dyspnea, syncope, headache, dizziness, GI bleed, back pain, seizure, CVA, palpatations, mental health, musculoskeletal)? @ -Differential includes cellulitis, abscess, allergic reaction, this is not an all-inclusive list EKG interpreted by me (3pts min.). @ -As above X-rays interpreted by me (1pt min.). @ -X-ray shows soft tissue swelling. CT interpreted by me (1pt min.). @ -None done U/S interpreted by me (1pt. min.). @ -None done What testing was considered but not performed or refused? (CT, X-rays, U/S, labs)? Why? @ -None What meds were considered but not given or refused? Why? @ -None Did you discuss the management of the patient with other professionals (professionals i.e. , PA, [employer], lab, RT, psych nurse, social service director, air pumper, teacher, transportation security officer, case maker)? Give summary @ -I spoke with Dr. Sterling who accepted admission Was smoking cessation discussed for >3mins.? @ -No Was critical care preformed (if so, how long)? @ -No Were there social determinants of health that impacted care today? How? (Homelessness, low income, unemployed, alcoholism, drug addiction, transportation, low edu. Level, literacy, decrease access to med. care, alf, rehab)? @ -No Was there de-escalation of care discussed even if they declined (Discuss DNR or withdrawal of care, Hospice)? DNR status @ -No What co-morbidities impacted this encounter? (DM, HTN, Smoking, COPD, CAD, Cancer, CVA, ARF, Chemo, Hep., AIDS, mental health diagnosis, sleep apnea, morbid obesity)? @ -None Was patient admitted / discharged? Hospital course, mention meds given and route, prescriptions, significant lab abnormalities, going to OR and other pertinent info. @ -74-year-old male presenting with chief complaint of worsening redness and swelling to the Plate on the left forearm. He was bitten 1 week ago. He started antibiotics 2 days ago and states that symptoms have continued to worsen. Lab work shows no leukocytosis. X-ray shows soft tissue swelling. His tetanus is up-to-date. He was given 3 g of Unasyn. He will require admission. He is agreeable with this plan. I discussed this case with my attending Dr. Stephens. Undiagnosed new problem with uncertain prognosis? @ -No Drug Therapy requiring intensive monitoring for toxicity (Heparin, Nitro, Insulin, Cardizem)? @ -No Were any procedures done? @ -No Diagnosis/symptom? @ -Cat bite cellulitis Acute, or Chronic, or Acute on Chronic? @ -Acute Uncomplicated (without systemic symptoms) or Complicated (systemic symptoms)? @ -Complicated Side effects of treatment? @ -No Exacerbation, Progression, or Severe Exacerbation? @ -No Poses a threat to life or bodily function? How? (Chest pain, USA, ID, pneumonia, PE, COPD, DKA, ARF, appy, cholecystitis, CVA, Diverticulitis, Homicidal, Suicidal, threat to staff... and all critical care pts) @ -Yes - Lab Data Result diagrams: 06/10/24 22:49 06/10/24 22:49 Lab Results 06/10/24 06/10/24 06/10/24 Range/Units 22:49 22:49 22:49 WBC 7.2 (3.8-10.6) k/uL RBC 3.81 L (4.30-5.90) m/uL Hgb 12.2 L (13.0-17.5) gm/dL Hct 38.3 L (39.0-53.0) % MCV 100.3 H (80.0-100.0) fL MCH 32.0 (25.0-35.0) pg MCHC 31.9 (31.0-37.0) g/dL RDW 13.4 (11.5-15.5) % Plt Count 347 (150-450) k/uL MPV 8.4 Neutrophils % 59 % Lymphocytes % 25 % Monocytes % 8 % Eosinophils % 5 % Basophils % 1 % Neutrophils # 4.2 (1.3-7.7) k/uL Lymphocytes # 1.8 (1.0-4.8) k/uL Monocytes # 0.5 (0-1.0) k/uL Eosinophils # 0.3 (0-0.7) k/uL Basophils # 0.1 (0-0.2) k/uL Sodium 139 (137-145) mmol/L Potassium 4.2 (3.5-5.1) mmol/L Chloride 108 H (98-107) mmol/L Carbon Dioxide 21 L (22-30) mmol/L Anion Gap 10 mmol/L BUN 37 H (9-20) mg/dL Creatinine 1.83 H (0.66-1.25) mg/dL Est GFR (CKD-EPI)AfAm 41 (>60 ml/min/1.73 sqM) Est GFR (CKD-EPI)NonAf 35 (>60 ml/min/1.73 sqM) Glucose 103 H (74-99) mg/dL Plasma Lactic Acid Corby 0.8 (0.7-2.0) mmol/L Calcium 9.4 (8.4-10.2) mg/dL Total Bilirubin 0.5 (0.2-1.3) mg/dL AST 36 (17-59) U/L ALT 10 (4-49) U/L Alkaline Phosphatase 65 (38-126) U/L Total Protein 7.6 (6.3-8.2) g/dL Albumin 4.2 (3.5-5.0) g/dL Disposition Clinical Impression: Cat bite, Cellulitis Disposition: ADMITTED IP TO THIS HOSP Condition: Stable Time of Disposition: 00:55
[2024-06-11] MEDS ORDERED: NALOXONE 0.4 MG/ML 1 ML VIAL IV PRN (00:57)
[2024-06-11] MEDS ORDERED: ACETAMINOPHEN TAB 325 MG TAB PO PRN (00:57)
--- NOTE | 2024-06-11 01:13 | XR ---
EXAM: XR Left Forearm, 2 Views CLINICAL HISTORY: ITS.REASON XR Reason: cat bite TECHNIQUE: Frontal and lateral views of the left forearm. COMPARISON: No relevant prior studies available. FINDINGS: Bones/joints: Unremarkable. No acute fracture. No dislocation. Soft tissues: Soft tissue swelling of the mid forearm. No obvious soft tissue gas. IMPRESSION: Soft tissue swelling of the mid forearm.
--- NOTE | 2024-06-11 05:57 | P.HPIM ---
History of Present Illness H&P Date: 06/11/24 Chief Complaint: Cat bite Patient is a 74-year-old male with history of hypertension and stage III CKD presents to the ER with cat bite wound on his left forearm since 1 week. Patient reports that he was bit by his cat on his left forearm at home while grooming him. Patient states that pain and swelling has been worsening since 1 week. In the interval, patient has been to the urgent care twice within 1 week. First time patient went 2 days after the bite when his pain and swelling was not subsiding. Patient was given oral antibiotics. Patient reports that area of bite continue to get painful and swollen with drainage of pus despite being on antibiotic. Patient made a second visit to the urgent care 2 days after the initial visit and was given second round of antibiotic. Patient reports that he continued to have pain and swelling. This prompted him to come to ER for further treatment. patient reports previous episodes of cat bite 1 year ago treated with antibiotic. He stated that his temperature at home has been less than 100 F with Tmax 98.7 at home reading. He otherwise has been able to move his left arm, wrist and fingers and noticed no crepitus or gas in the area. patient received tetanus shot 1 year ago His left forearm x-ray in the ER shows no acute fracture or dislocation. There is soft tissue swelling of the mid forearm. No obvious soft tissue gas. Vitals: Tmax 98.2, heart rate 69, respirate 18, blood pressure 136/78, O2 saturation 97% on room air Review of systems: Pertinent positives and negatives as discussed in HPI, a complete review of systems was performed and all other systems are negative. Social history: Tobacco: None Alcohol: None Recreational drugs: None Travel: No recent travel Occupation: Retired Family History: Noncontributory Physical examination: Vital signs reviewed General: non toxic, no distress, appears at stated age, normal weight Derm: Large area of skin that is red, swollen, mildly tender with with 1 cm raised bumpy lesion with red dot in the center on posterior left forearm, radial pulses are intact , capillary refill immediate in his fingers Head: atraumatic, normocephalic, symmetric Eyes: EOMI, no lid lag, anicteric sclera, pupils equal round reactive to light ENT: Nose and ears atraumatic Neck: No cervical lymphadenopathy, trachea midline, supple Mouth: no lip lesion, mucus membranes moist Cardiovascular: S1S2 reg, no murmur, positive dorsalis pedis pulse bilateral, no edema Lungs: CTA bilateral, no rhonchi, no rales, no accessory muscle use Abdominal: soft, nontender to palpation, no guarding Ext: muscle strength 5 out of 5 in all 4 extremities grossly, no gross muscle at rophy, no contractures, Neuro: CN II-XI grossly intact, no gross focal neuro deficits Psych: Alert, oriented, appropriate affect Assessment/Plan: 74-year-old male with history of hypertension and stage III CKD presents to the ER with increase swelling and erythema after a cat bite wound on his left forearm since 1 week, failed outpatient antibiotic therapy -Cellulitis, secondary to cat bite, failed outpatient antibiotic therapy Ordered IV ampicillin sulbactam 3 g every 6 hours Order blood culture, follow-up on results Continue monitor vitals Continue with CBC Order normal IV saline 20 cc/h WBC 7.2 , afebrile , HR 80s unremarkable lactic acid 0.8 unremarkable -Chronic kidney disease Patient is not on dialysis Anemia secondary to CKD Hemoglobin 12.2, hematocrit 38.3, MCV 100.3 Ordered RBC folate, vitamin B12 to rule out macrocytic anemia Abnormal kidney profile likely due to CKD BUN 37, creatinine 1.83, EGFR 35, chloride 108, carbon bicarb 21 Continue monitor CMP hypertension , slightly elevated resume amlodipine continue to monitor DVT prophylaxis: Lovenox 30 mg subcu daily adjusted due to CKD The patient is admitted with an anticipated less than than 2 midnight stay for evaluation of cellulitis CODE STATUS: Full code Discussed with: Patient Anticipated discharge place: Home Past Medical History Past Medical History: Cancer, Hypertension, Prostate Disorder, Renal Disease Additional Past Medical History / Comment(s): lymphoma ( tx with radiation, caused kidney issues), stage 4 kidney disease, polyneuropathy(finger and lips numb) History of Any Multi-Drug Resistant Organisms: None Reported Past Surgical History: Appendectomy, Cholecystectomy, Tonsillectomy Additional Past Surgical History / Comment(s): spleen, non-hodgkins lymphona, TURP. colonoscopy Past Anesthesia/Blood Transfusion Reactions: No Reported Reaction Past Psychological History: No Psychological Hx Reported Smoking Status: Former smoker - Past Family History Mother Family Medical History: Coronary Artery Disease (CAD) Sister(s) Additional Family Medical History / Comment(s): diverticulitis, kidney stones. another sister with kidney issues Medications and Allergies Home Medications Medication Instructions Recorded Confirmed Type Cholecalciferol (Vitamin D3) 125 mcg PO DAILY 10/03/21 08/05/23 History [Vitamin D3 (125 MCG = 5,000 IU)] Clopidogrel Bisulfate [Clopidogrel] 75 mg PO DAILY 08/05/23 08/05/23 History Unk Multi Vitamin 1 tab PO DAILY 08/05/23 08/05/23 History amLODIPine BESYLATE 5 mg PO DAILY 08/05/23 08/06/23 History Allergies Allergy/AdvReac Type Severity Reaction Status Date / Time No Known Allergies Allergy Verified 08/06/23 07:41 Physical Exam Vitals: Vital Signs Temp Pulse Resp BP Pulse Ox 06/11/24 02:40 97.5 F L 69 18 136/78 97 06/10/24 22:02 98.2 F 80 20 152/79 97 Intake and Output 06/10/24 06/10/24 06/11/24 14:59 22:59 06:59 Other: Weight 57.606 kg Results CBC & Chem 7: 06/10/24 22:49 06/10/24 22:49 Labs: Abnormal Lab Results - Last 24 Hours (Table) 06/10/24 06/10/24 Range/Units 22:49 22:49 RBC 3.81 L (4.30-5.90) m/uL Hgb 12.2 L (13.0-17.5) gm/dL Hct 38.3 L (39.0-53.0) % MCV 100.3 H (80.0-100.0) fL Chloride 108 H (98-107) mmol/L Carbon Dioxide 21 L (22-30) mmol/L BUN 37 H (9-20) mg/dL Creatinine 1.83 H (0.66-1.25) mg/dL Glucose 103 H (74-99) mg/dL Assessment and Plan Assessment: I have seen and evaluated the patient today. I Discussed the case with the resident and agree with the resident's findings I edited the assessment and plan as necessary as documented in the resident's note.
[2024-06-11] MEDS: SODIUM CHLORIDE 0.9% 500 ML 500 ML IV SCH (06:25)
[2024-06-11] MEDS: ENOXAPARIN 40 MG/0.4 ML SYRINGE SQ STA (06:26)
[2024-06-11] MEDS: AMPICILLIN-SULBACTAM 3 GM in SODIUM CHLORIDE 0.9% 100 ML IVPB SCH ×2 (06:26→13:51)
[2024-06-11] MEDS: amLODIPine 5 MG TAB PO SCH (08:09)
[2024-06-11] MEDS: CLOPIDOGREL 75 MG TAB PO SCH (08:10)
[2024-06-11 08:54] LABS: ALT 10 U/L (4-49); AST 36 U/L (17-59); African American GFR (CKD) 45 (>60 ml/min/1.73 sqM); Albumin/Globulin Ratio 1.2; Alkaline Phosphatase 69 U/L (38-126); Anion Gap 8 mmol/L; Blood Urea Nitrogen 31 mg/dL (9-20); Calcium 9.5 mg/dL (8.4-10.2); Carbon Dioxide 23 mmol/L (22-30); Chloride 109 mmol/L (98-107); Globulin 3.4 g/dL; Glucose 105 mg/dL (74-99); Non-African American GFR(CKD) 39 (>60 ml/min/1.73 sqM); Potassium 4.1 mmol/L (3.5-5.1); Sodium 140 mmol/L (137-145); Total Bilirubin 0.7 mg/dL (0.2-1.3); Total Protein 7.4 g/dL (6.3-8.2)
[2024-06-11 10:21] LABS: HCT 37.2 % (39.6-50.0); HGB 12.1 g/dL (13.0-17.0); MCH 31.3 pg (27.0-32.0); MCHC 32.5 g/dL (32.0-37.0); MCV 96.4 FL (80.0-97.0); Mean Platelet Volume 10.9 FL (9.5-12.2); NRBC Per 100 WBC 0 X 10*3/uL (0.00-0.01); Platelet Count 371 X 10*3/uL (140-440); RBC 3.86 X 10*6/uL (4.40-5.60); RDW 13.7 % (11.5-14.5); WBC 6.86 X 10*3/uL (4.50-10.00)
--- NOTE | 2024-06-11 10:54 | P.CNOR ---
History of Present Illness - [facility] Consult date: 06/11/24 Consult reason: other (Left forearm cellulitis/abscess) History of present illness: Patient is a 74-year-old male who presented to [facility] on 06/11/2024 for further evaluation of a left forearm cellulitis due to recent cat bite. Patient has been seen in the urgent care on 2 separate occasions in the last week since being initially bit by the cat. He has had a couple different oral antibiotics. Patient felt that the redness, pain and swelling had been getting worse which prompted him to come to the hospital for further evaluation. Patient was evaluated in the emergency room, he is resting comfortably, he appears to be in no acute distress. He states that the cat bite happened about a week ago, it is his cat. Like stated above he had 2 different oral antibiotics. He did notice some drainage from the left upper extremity on 06/09/2024, this seems to have subsided. He notes that the discomfort has been gradually getting worse along with the redness. Since being in the hospital overnight, he has been started on IV antibiotics. He is being followed by internal medicine also at this time. Patient denies any previous surgery to the left upper extremity. He denies any numbness or tingling to the extremity. He denies any pain at the wrist, elbow, shoulder. Review of Systems Constitutional: Reports as per [facility] Past Medical History Past Medical History: Cancer, Hypertension, Prostate Disorder, Renal Disease Additional Past Medical History / Comment(s): lymphoma ( tx with radiation, caused kidney issues), stage 4 kidney disease, polyneuropathy(finger and lips numb) History of Any Multi-Drug Resistant Organisms: None Reported Past Surgical History: Appendectomy, Cholecystectomy, Tonsillectomy Additional Past Surgical History / Comment(s): spleen, non-hodgkins lymphona, TURP. colonoscopy Past Anesthesia/Blood Transfusion Reactions: No Reported Reaction Past Psychological History: No Psychological Hx Reported Smoking Status: Former smoker - Past Family History Mother Family Medical History: Coronary Artery Disease (CAD) Sister(s) Additional Family Medical History / Comment(s): diverticulitis, kidney stones. another sister with kidney issues Medications and Allergies Home Medications Medication Instructions Recorded Confirmed Type Cholecalciferol (Vitamin D3) 125 mcg PO DAILY 10/03/21 06/11/24 History [Vitamin D3 (125 MCG = 5,000 IU)] Clopidogrel Bisulfate [Clopidogrel] 75 mg PO DAILY 08/05/23 06/11/24 History amLODIPine BESYLATE 5 mg PO DAILY 08/05/23 06/11/24 History Amoxic-Pot Clav 875-125Mg 1 tab PO Q12HR 06/11/24 06/11/24 History [Augmentin 875-125] allopurinoL 100 mg PO DAILY 06/11/24 06/11/24 History Allergies Allergy/AdvReac Type Severity Reaction Status Date / Time No Known Allergies Allergy Verified 06/11/24 08:29 Physical Examination Left upper extremity: Erythema noted to the mid forearm on the dorsal aspect, there are 2 areas of fl uctuance appreciated in that area, 1 of those areas does have some scabbing, it is about 2 cm in length. No active drainage is visualized. Tenderness with palpation in that area is noted. No significant redness appreciated above the elbow or near the wrist. No erythema noted on the dorsal or volar aspect of the hand Extension and flexion are intact at the hand, he is able to wiggle all the fi ngers and make a full fist. Range of motion is painless at the elbow with both flexion and extension along with pronation and supination. Patient is full range of motion at the shoulder with forward elevation and abduction, there is no pain reproduced Nontender with palpation surrounding the hand or wrist, elbow, shoulder Sensory exam to light touch is intact throughout the extremity Radial and ulnar pulse are 2+ Results - Labs Labs: Abnormal Lab Results - Last 24 Hours (Table) 06/10/24 06/10/24 06/11/24 Range/Units 22:49 22:49 08:09 RBC 3.81 L 3.86 L (4.30-5.90) m/uL Hgb 12.2 L 12.1 L (13.0-17.5) gm/dL Hct 38.3 L 37.2 L (39.0-53.0) % MCV 100.3 H (80.0-100.0) fL Chloride 108 H (98-107) mmol/L Carbon Dioxide 21 L (22-30) mmol/L BUN 37 H (9-20) mg/dL Creatinine 1.83 H (0.66-1.25) mg/dL Glucose 103 H (74-99) mg/dL 06/11/24 Range/Units 08:09 RBC (4.30-5.90) m/uL Hgb (13.0-17.5) gm/dL Hct (39.0-53.0) % MCV (80.0-100.0) fL Chloride 109 H (98-107) mmol/L Carbon Dioxide (22-30) mmol/L BUN 31 H (9-20) mg/dL Creatinine 1.67 H (0.66-1.25) mg/dL Glucose 105 H (74-99) mg/dL H & H 06/10/24 06/11/24 Range/Units 22:49 08:09 Hgb 12.2 L 12.1 L (13.0-17.5) gm/dL Hct 38.3 L 37.2 L (39.0-53.0) % Result Diagrams: 06/11/24 08:09 06/11/24 08:09 - Diagnostic results Elbow x-ray: report reviewed, image reviewed (Images and reports of the left forearm x-rays were reviewed. No acute osseous abnormalities. Soft tissue swelling noted at the mid forearm near the area of the cellulitis/abscess) Assessment and Plan Assessment: Left dorsal forearm cellulitis/abscess History of recent cat bite Chronic kidney disease Other medical comorbidities Plan: I was able to discuss the case, this to include physical exam findings and imaging studies my attending Dr. Caraballo. Patient has been tentatively scheduled for an I&D procedure of the left forearm for 06/12/2024. Dr. Caraballo will evaluate the patient to confirm current treatment plan Continue IV antibiotics Ice and elevate extremity Warm soapy soaks 2-3 times a day GI and DVT prophylaxis per primary medical service Other medical specialty recommendations appreciated Further recommendations to follow Time with Patient: Less than 30
--- NOTE | 2024-06-12 07:13 | P.PN ---
Subjective Progress Note Date: 06/12/24 Subjective: Patient seen at bedside. No significant overnight events. Patient reports he feels the erythema around the infected arm is improving and the overall infection is improving. Pertinent positives and negatives discussed above, a complete review of systems was preformed and all the other sytems were negative. Vitals Signs Reveiwed. General: non toxic, no distress, appears at stated age, normal weight Derm: Receding erythema on the dorsal forearm with 2 epidural abscesses (lateral one is ulcerated with scar tissue over the top), warm Head: atraumatic, normocephalic, symmetric Eyes: EOMI, no lid lag, anicteric sclera, pupils equal round reactive to light ENT: Nose and ears atraumatic Neck: No cervical lymphadenopathy, trachea midline, supple Mouth: no lip lesion, mucus membranes moist Cardiovascular: S1S2 reg, no murmur, positive dorsalis pedis pulse bilateral, no edema Lungs: Decreased air entry bilaterally, no rhonchi, no rales, no accessory muscle use Abdominal: soft, nontender to palpation, no guarding Ext: muscle strength 5 out of 5 in all 4 extremities grossly, no gross muscle atrophy, no contractures, Neuro: CN II-XI grossly intact, no gross focal neuro deficits Psych: Alert, oriented, appropriate affect Data Reveiwed Today: Patient Labs: Sodium 140, potassium 4.6, chloride 111, BUN 37, creatinine 1.68, WBC 5.2, hemoglobin 11.4, and MCV 102.7. Imaging: No new imaging. Assesment: 74-year-old male with past medical history of hypertension and CKD 3 presents after a cat bite to the left forearm. Patient is being worked up for treatment of potential cellulitis. Plan: Cellulitis, secondary to cat bite, failed outpatient antibiotic therapy: Continue IV ampicillin sulbactam 3 g every 6 hours Erythema from cellulitis is receding from initial marker drawn around the erythematous area. I&D performed today on 2 epidural abscesses, patient tolerated procedure well and fluid taken from abscesses were sent for culture. Pending results of blood culture Continue monitor vitals Monitor CBC Consider discontinuing normal IV saline 20 cc/h after procedure when patient will be able to take oral intake. Afebrile, WBC 5.2. lactic acid 0.8 unremarkable Chronic kidney disease: Patient is not on dialysis Anemia secondary to CKD Hemoglobin 11.4, hematocrit 36.7, MCV 102.7. RBC 3.57 and B12 456. Abnormal kidney profile likely due to CKD BUN 37, creatinine 1.68, steady compared to yesterday. Continue monitor CMP Hypertension , slightly elevated: Continue home amlodipine continue to monitor DVT prophylaxis: Lovenox 30 mg subcu daily adjusted due to CKD CODE STATUS: Full code Discussed with: Patient Anticipated discharge place: Home Anticipated time of discharge: Pending clinical course, potentially tomorrow (06/13) if I&D is successful and IV antibiotics can be converted to oral. I have seen and evaluated the patient today. Discussed with the resident and agree with the residents subjective and objective as documented in the resident's note. The assessment and plan was discussed and outlined as below. Seen s/p I&D. Pain well controlled with [place]. Left forearm cellulitis versus abscess: Due to cat bite. Orthopedic surgery on board for I&D. Continue Unasyn 3g IV TID (D2) while awaiting cultures. Macrocytic anemia: Hg remains stable. No signs of active bleed. B12 wnl. Follow up Folate levels. Chronic kidney disease stage IIIb Objective - Vital Signs Vital signs: Vital Signs Temp 98.2 F 06/12/24 01:59 Pulse 75 06/12/24 01:59 Resp 18 06/12/24 01:59 BP 110/61 06/12/24 01:59 Pulse Ox 98 06/12/24 01:59 FiO2 Intake & Output 06/11/24 06/12/24 06/12/24 18:59 06:59 18:59 Weight 57.606 kg Other: # Voids 2 - Labs CBC & Chem 7: 06/12/24 07:26 06/12/24 07:26 Labs: Abnormal Lab Results - Last 24 Hours (Table) 06/11/24 06/11/24 Range/Units 08:09 08:09 RBC 3.86 L (4.40-5.60) X 10*6/uL Hgb 12.1 L (13.0-17.0) g/dL Hct 37.2 L (39.6-50.0) % Chloride 109 H (98-107) mmol/L BUN 31 H (9-20) mg/dL Creatinine 1.67 H (0.66-1.25) mg/dL Glucose 105 H (74-99) mg/dL
[2024-06-12 07:42] LABS: Basophils # (A) 0.1 k/uL (0-0.2); Basophils % (A) 2 %; Eosinophils # (A) 0.2 k/uL (0-0.7); Eosinophils % (A) 4 %; HCT 36.7 % (39.0-53.0); HGB 11.4 gm/dL (13.0-17.5); Lymphocytes # (A) 1.2 k/uL (1.0-4.8); Lymphocytes % (A) 23 %; MCH 31.9 pg (25.0-35.0); MCHC 31.1 g/dL (31.0-37.0); MCV 102.7 fL (80.0-100.0); Macrocytosis Slight; Mean Platelet Volume 8.5; Monocytes # (A) 0.4 k/uL (0-1.0); Monocytes % (A) 8 %; Neutrophils # (A) 3.1 k/uL (1.3-7.7); Neutrophils % (A) 59 %; Platelet Count 359 k/uL (150-450); RBC 3.57 m/uL (4.30-5.90); RDW 13.5 % (11.5-15.5); WBC 5.2 k/uL (3.8-10.6)
[2024-06-12 07:51] LABS: African American GFR (CKD) 45 (>60 ml/min/1.73 sqM); Anion Gap 6 mmol/L; Blood Urea Nitrogen 37 mg/dL (9-20); Calcium 9.1 mg/dL (8.4-10.2); Carbon Dioxide 23 mmol/L (22-30); Chloride 111 mmol/L (98-107); Glucose 95 mg/dL (74-99); Non-African American GFR(CKD) 39 (>60 ml/min/1.73 sqM); Potassium 4.6 mmol/L (3.5-5.1); Sodium 140 mmol/L (137-145)
[2024-06-12] MEDS ORDERED: ENOXAPARIN 30 MG/0.3 ML SYRINGE SQ SCH (09:00)
[2024-06-12] MEDS: DEXAMETHASONE SOD PHOSPHATE 4 MG/ML 1 ML VIAL IVP PRN (10:25)
[2024-06-12] MEDS: IV FLUID CONTINUATION 1,000 ML IV ONE ×3 (10:30→11:41)
[2024-06-12] MEDS ORDERED: PROPOFOL 10 MG/ML 20 ML VIAL IV ONE (10:33)
[2024-06-12] MEDS ORDERED: MIDAZOLAM 2 MG/2 ML VIAL ONE (10:33)
[2024-06-12] MEDS ORDERED: fentaNYL (PF) 50 MCG/ML 2 ML AMP ONE (10:33)
[2024-06-12] MEDS: SODIUM CHLORIDE 0.9% 50 ML with ceFAZolin 1,000 MG IV ONE (10:33)
[2024-06-12] MEDS ORDERED: LIDOCAINE 1% INJ 10MG/ML (20 ML MDV) ONE (10:33)
[2024-06-12] MEDS: LIDOCAINE 1% INJ 10MG/ML (20 ML MDV) SQ ONE (10:52)
[2024-06-12] MEDS: BUPIVACAINE (PF) 0.5% 30 ML VIAL SQ ONE (10:52)
--- NOTE | 2024-06-12 10:58 | P.OP ---
Date of Procedure: 06/12/24 Preoperative Diagnosis: Left forearm abscess Postoperative Diagnosis: Left forearm abscess Procedure(s) Performed: Left forearm abscess Incision and drainage Anesthesia: MAGGIE Surgeon: Luis Enrique Caraballo Heavy Equipment Operator/Paver #1: Sergey Nath Pathology: none sent (Forearm abscess culture) Condition: stable Disposition: PACU Description of Procedure: This is a 74 year old male who presents today for a left forearm abscess incision and drainage after having failed conservative outpatient antibiotic therapy for a cat bite. Risks and benefits of surgery were discussed with the patient including bleeding, damage to surrounding tissue, infection, need for further surgery as well as risks of anesthesia including pulmonary embolism and even and the patient wished to proceed with surgical intervention. The patient was seen in the pre-operative area by myself. Consent and H&P were comp leted and updated. The correct extremity was marked in the pre-operative area by myself and all other questions were answered. Operative Narrative: The patient was brought to the operating room by the department of anesthesia. They remained on the portable stretcher and a rolling hand table was brought to the side of the operative extremity. Pre-operative time out was performed indicating the correct patient, procedure and laterality. All in the room agreed. Pre-operative antibiotics were given prior to skin incision. The patient was then drifted off to sleep by the department of anesthesia. A nonsterile tourniquet was then applied to the operative extremity and the left upper extremity was then prepped and draped in normal sterile fashion. The operative extremity was the held up to gravity and the tourniquet was inflated to 250mmHg. 15 blade blade scalpel was utilized to make a longitudinal incision over the 2 areas of maximal fluctuance. Upon incision there was expression of only a small amount of purulent material, cultures were collected. Hemostat was used to break up subcutaneous loculations. 3L of sterile saline was then irrigated through the incisions. 10cc's of a 50:50 mix of 0.5% bupivicaine and 2% lidocaine was injected into the subcutaneous tissues around the wound. The wounds were left open and sterile dressing with adaptic, 4x4, cast padding and an ariel wrap was applied. Tourniquet was let down and the hand had immediate perfusion. The patient was then woken by the department of anesthesia and transferred to PACU in stable condition. Sergey MATIAS was present to assist in retraction and arm manipulation. Luis Enrique Caraballo D.O. Orthopedic Hand/Upper Extremity Surgeon
[2024-06-12] MEDS: SODIUM CHLORIDE 0.9% 1,000 ML BAG IV STA (11:40)
[2024-06-12] MEDS: HYDROcodone/APAP 5-325MG 1 EACH TAB PO PRN (12:05)
[2024-06-13] MEDS: diphenhydrAMINE 25 MG CAP PO STA (02:30)
--- NOTE | 2024-06-13 13:14 | P.PN ---
Subjective Progress Note Date: 06/13/24 Principal diagnosis: Left forearm abscess Patient evaluated at bedside, he is resting comfortably. He has no acute complaints at this time. He has no significant pain appreciated in the left forearm. He did notice some itching in that left upper extremity last night, he did receive Benadryl which did help. He denies chest pain, shortness of breath, fever or chills. Objective - Vital Signs Vital signs: Vital Signs Temp 98.5 F 06/13/24 07:24 Pulse 60 06/13/24 07:24 Resp 18 06/13/24 07:24 BP 129/61 06/13/24 07:24 Pulse Ox 96 06/13/24 07:24 FiO2 Intake & Output 06/12/24 06/13/24 06/13/24 18:59 06:59 18:59 Intake Total 750 980 Output Total 0 Balance 750 980 Intake: IV 650 Intake, IV Titration 100 440 Amount Ampicillin-Sulbactam 3 gm 100 200 In Sodium Chloride 0.9% 100 ml @ 200 mls/hr IVPB Q8H [facility] Rx#:[id number] Sodium Chloride 0.9% 500 240 ml 500 ml @ 20 mls/hr IV .Q24H [facility] Rx#:[id number] Oral 540 Output: Estimated Blood Loss 0 Other: Voiding Method Toilet Toilet Toilet # Voids 2 2 - Exam Left upper extremity: Postop bandage was removed, incisions are well-healing at this time. There was mild bloody drainage noted on the bandage. No active drainage appreciated. Swelling and erythema seems improved since prior to surgery. Elbow extension and flexion are intact. Flexion and extension are intact at the wrist, he is able to wiggle all the fingers and make a full fist with no pain. Sensory exam to light touch is intact throughout the extremity. Radial and ulnar pulse are 2+ - Labs CBC & Chem 7: 06/12/24 07:26 06/12/24 07:26 Labs: Microbiology - Last 24 Hours (Table) 06/11/24 08:09 Blood Culture - Preliminary Blood Assessment and Plan Assessment: Left dorsal forearm cellulitis/abscess, postoperative day #1 status post I&D History of recent cat bite Chronic kidney disease Other medical comorbidities Plan: Wound care instructions were discussed, patient may wash over the area with soap and water, avoid soaking at this time. Basic nonadherent dressing and light wrap over the forearm Continue IV antibiotics Ice and elevate extremity GI and DVT prophylaxis per primary medical service Other medical specialty recommendations appreciated Discharge planning: Orthopedically patient is stable for discharge, our follow- up information will be placed in chart Time with Patient: Less than 30
[2024-06-13 13:19] VITALS: RESP 16
--- NOTE | 2024-06-13 14:33 | P.PN ---
Subjective Progress Note Date: 06/13/24 74 year old M with PMH of HTN and CKD stage III presents to the ED after a cat bite to the left forearm. He was prescribed Augmentin which did not seem to help which prompted his admission. In the ED he underwent extensive evaluation. BP 152/79, HR 80, T 98.2F, RR 20, 97% on RA. CBC and CMP significant for RBC 3.81, Hg 12.2, Hct 28.3, MCV 100.3, Cl 108, bicarb 21, BUN 37, Cr 1.83, glu 103. Lactic acid 5.8. Forearm XR soft tissue swelling. Start on Unasyn and admitted. Orthopedic Sx consulted underwent I&D on 06/12. 06/13 Patient was seen and examined. Well controlled pain in the left forearm. Blood cultures negative. Wound cultures pending. Orthopedic surgery stable for discharge in their standpoint. General: non toxic, no distress, appears at stated age Derm: warm, dry Head: atraumatic, normocephalic, symmetric Eyes: EOMI, no lid lag, anicteric sclera Mouth: no lip lesion, mucus membranes moist Cardiovascular: S1S2 reg, no murmur Lungs: CTA bilateral, no rhonchi, no rales , no accessory muscle use Ext: no gross muscle atrophy, no edema, no contractures, left forearm dressing clean dry and intact Neuro: no focal neuro deficits Psych: Alert, oriented, appropriate affect Left forearm cellulitis versus abscess: Due to cat bite. Status post I&D on 06/12. Continue Unasyn 3g IV TID (D3) while awaiting cultures. Macrocytic anemia: Hg remains stable. No signs of active bleed. B12 wnl. Follow up Folate levels. Chronic kidney disease stage IIIb CODE STATUS: FULL CODE DVT Prophylaxis: Lovenox GI Prophylaxis: Designated medical POA if patient is not able to make medical decisions for th emselves: Dispo: Plans for discharge home when results of WCx is available. I have reviewed the following hadoop consultant notes: Orthopedic Sx note. I have reviewed the results of the following tests: BCx. I have ordered the following tests: I have discussed the care of this patient with the following independent historian: I have independently interpreted the following test below: I have discussed the management of this patient with the following physician: Objective - Vital Signs Vital signs: Vital Signs Temp 98.4 F 06/13/24 12:52 Pulse 62 06/13/24 12:52 Resp 16 06/13/24 12:52 BP 131/69 06/13/24 12:52 Pulse Ox 96 06/13/24 12:52 FiO2 Intake & Output 06/12/24 06/13/24 06/13/24 18:59 06:59 18:59 Intake Total 750 980 Output Total 0 Balance 750 980 Intake: IV 650 Intake, IV Titration 100 440 Amount Ampicillin-Sulbactam 3 gm 100 200 In Sodium Chloride 0.9% 100 ml @ 200 mls/hr IVPB Q8H [facility] Rx#:[id number] Sodium Chloride 0.9% 500 240 ml 500 ml @ 20 mls/hr IV .Q24H [facility] Rx#:[id number] Oral 540 Output: Estimated Blood Loss 0 Other: Voiding Method Toilet Toilet Toilet # Voids 2 2 - Labs CBC & Chem 7: 06/12/24 07:26 06/12/24 07:26 Labs: Microbiology - Last 24 Hours (Table) 06/11/24 08:09 Blood Culture - Preliminary Blood
[2024-06-14] MEDS: ENOXAPARIN 40 MG/0.4 ML SYRINGE SQ SCH (08:34)
[2024-06-14] MEDS: CLOPIDOGREL 75 MG TAB PO SCH (08:34)
--- NOTE | 2024-06-14 11:31 | P.DS ---
Providers Date of admission: 06/11/24 00:58 Discharge Diagnosis: Cellulitis, secondary to cat bite Chronic kidney disease Hypertension Hospital Course: 74-year-old male with past medical history of hypertension and CKD 3 presents after a cat bite to the left forearm. Patient reported being bitten by his cat, then going to urgent care and receiving antibiotics. Patient then reported that the area of the Bite was getting worse, even while on antibiotics, so he decided to come to the ED. Patient denied chest pain, shortness of breath, wheezing, heart palpitations, diaphoresis, vomiting, diarrhea, constipation, urgency, and swelling in the lower extremities. In the ED patient's vitals were within normal limits, with the exception of an elevated blood pressure of 152/79. In the ED patient received imaging from XR left forearm which showed soft tissue swelling of the mid forearm. In the ED patient received labs significant for sodium 139, potassium 4.2, chloride 108, bicarb 21, BUN 37, creatinine 1.83, glucose 103, WBC 7.2, hemoglobin 12.2, and MCV 100.3. Patient was admitted for workup of cellulitis likely secondary to cat bite to receive IV antibiotics. While admitted, patient received 3 g Unasyn IVPB every 8 hours. As a result the erythema around the cat bite drastically decreased. Patient was also seen by orthopedics while admitted who performed an incision and drainage on 2 fluctuances near the area of the cat bite. There were no complications from the procedure. At this time patient is recovering well from initial cellulitis, and can now have his IV antibiotics converted to oral for continued use outpatient after discharge. During this admission patient never had an abnormal white count or fever. Patient requested short course of [place], which she had been taking in the hospital, for outpatient use for the pinched nerve in his back. Patient will be given short 3-day course of [place]. Patient will be discharged home. Patient advised to follow-up with PCP. Pt seen and examined at bedside: [] Vital signs reveiwed and stable: General: non toxic, no distress, appears at stated age, normal weight Derm: Receding erythema on the dorsal forearm with 2 epidural abscesses (lateral one is ulcerated with scar tissue over the top), warm Head: atraumatic, normocephalic, symmetric Eyes: EOMI, no lid lag, anicteric sclera, pupils equal round reactive to light ENT: Nose and ears atraumatic Neck: No cervical lymphadenopathy, trachea midline, supple Mouth: no lip lesion, mucus membranes moist Cardiovascular: S1S2 reg, no murmur, positive dorsalis pedis pulse bilateral, no edema Lungs: Decreased air entry bilaterally, no rhonchi, no rales, no accessory muscle use Abdominal: soft, nontender to palpation, no guarding Ext: muscle strength 5 out of 5 in all 4 extremities grossly, no gross muscle atrophy, no contractures, Neuro: CN II-XI grossly intact, no gross focal neuro deficits Psych: Alert, oriented, appropriate affect A total of [] minutes were spent preparing this complex discarge summary. Patient was discharged on []. Attending physician: Dandre Sterling MD Consults: 06/11/24 09:07 Consult Physician Routine Consulting Provider: Luis Enrique Caraballo Consult Reason/Comments: cat bite Do you want consulting provider notified?: Yes Primary care physician: [place] Hospital Course: I have seen and evaluated the patient today. Discussed with the resident and agree with the residents subjective and objective as documented in the resident's note. The assessment and plan was discussed and outlined as below. Patient doing well. Reports improvement in the erythema of his left arm. Orthopedic Sx has cleared the patient for discharge. WCx growing no organisms with few PMN. Plans for discharge home today on Augmentin for 7 days to complete a total of 10 days antibiotics. Follow up with PCP within 1-2 days and Orthopedic surgery within 1 week of discharge. Discharge Diagnosis: Left forearm cellulitis versus abscess Macrocytic anemia Chronic kidney disease stage IIIb This complex discharge took 35 minutes to complete. Patient Condition at Discharge: Stable Plan - Discharge Summary Discharge Rx Participant: No New Discharge Prescriptions: New HYDROcodone/APAP 10-325MG [[place] 10-325] 1 tab PO Q4HR PRN 3 Days #18 tab PRN Reason: Pain Continue Clopidogrel Bisulfate [Clopidogrel] 75 mg PO DAILY allopurinoL 100 mg PO DAILY Cholecalciferol (Vitamin D3) [Vitamin D3 (125 MCG = 5,000 IU)] 125 mcg PO DAILY amLODIPine BESYLATE 5 mg PO DAILY Amoxic-Pot Clav 875-125Mg [Augmentin 875-125] 1 tab PO Q12HR #14 tab Discharge Medication List Cholecalciferol (Vitamin D3) [Vitamin D3 (125 MCG = 5,000 IU)] 125 mcg PO DAILY 11/03/21 [History] Clopidogrel Bisulfate [Clopidogrel] 75 mg PO DAILY 08/05/23 [History] amLODIPine BESYLATE 5 mg PO DAILY 08/05/23 [History] allopurinoL 100 mg PO DAILY 06/11/24 [History] Amoxic-Pot Clav 875-125Mg [Augmentin 875-125] 1 tab PO Q12HR #14 tab 06/14/24 [Rx] HYDROcodone/APAP 10-325MG [[place] 10-325] 1 tab PO Q4HR PRN 3 Days #18 tab 06/14/24 [Rx] Follow up Appointment(s)/Referral(s): Luis Enrique Caraballo DO [Doctor of Osteopathic Medicine] - As Needed Roby Connolly MD [Primary Care Provider] - 1-2 days (The office is at lunch please call and make follow up appoinment.) Patient Instructions/Handouts: Animal Bite (ED) Activity/Diet/Wound Care/Special Instructions: Orthopedic discharge instructions: 1. Utilize antibacterial soap and water over the incisions, do not soak 2. Basic bandage and wrap over the left forearm 3. Ice and elevate for symptomatic relief 4. Follow-up as needed with advanced orthopedics, contact with any questions Discharge Disposition: HOME SELF-CARE
[2024-06-14 12:14] VITALS: BP 157/70; PULSE 63; TEMP 97.5
== END 2024-06-14 13:57 | disposition home or self-care (01) | DRG 603 ==
LOC: EC 21:52 → 5NMEDONC 06-11 00:58
PROVIDERS: ADMIT Internal Medicine; ATTEND Internal Medicine
PROC: 0J9H0ZZ Drainage of Left Lower Arm Subcutaneous Tissue and Fascia, Open Approach (ICD-10-PCS; principal; 2024-06-12 13:20)
DX: L03.114 Cellulitis of left upper limb (principal); N18.4 Chronic kidney disease, stage 4 (severe); L02.414 Cutaneous abscess of left upper limb; G62.9 Polyneuropathy, unspecified; K59.00 Constipation, unspecified; W55.01XA Bitten by cat, initial encounter; I12.9 Hypertensive chronic kidney disease with stage 1 through stage 4 chronic kidney disease, or unspecified chronic kidney disease; T66.XXXS Radiation sickness, unspecified, sequela; Z79.02 Long term (current) use of antithrombotics/antiplatelets; D63.1 Anemia in chronic kidney disease; Z79.899 Other long term (current) drug therapy; Z85.72 Personal history of non-Hodgkin lymphomas; Z87.891 Personal history of nicotine dependence; Z90.79 Acquired absence of other genital organ(s)
CPT/HCPCS: 36415; 80048; 80053; 82607; 82747; 83036; 83605; 85025; 85027; 87040; 87070; 87075; 87205; 96365; 96366; 96372; 99285

== ENCOUNTER 2024-07-28 06:03 | Day surgery (SDC) | payer MEDICARE ==
[~2024-07-28 06:03] MED LIST: LIDOCAINE 1% (10MG/ML) FOR IV START INTRADERMA PRN
[2024-07-28] MEDS: ONDANSETRON 4 MG/2 ML VIAL IVP ONE (07:11)
[2024-07-28] MEDS: LACTATED RINGERS 1,000 ML IV SCH (07:11)
[2024-07-28] MEDS: IV FLUID CONTINUATION 1,000 ML IV ONE ×2 (07:17)
[2024-07-28] MEDS ORDERED: TRANEXAMIC 1,000 MG/100ML-NACL 1,000 MG in SALINE 1 100ML.BAG IVPB PRN (07:22)
[2024-07-28] MEDS ORDERED: PHENYLEPHRINE 10 MG/ML VIAL ONE (07:24)
[2024-07-28] MEDS ORDERED: fentaNYL (PF) 50 MCG/ML 2 ML AMP ONE (07:24)
[2024-07-28] MEDS ORDERED: ROCURONIUM 10 MG/ML (5 ML VIAL) IV ONE (07:24)
[2024-07-28] MEDS ORDERED: TRANEXAMIC 1,000 MG/100ML-NACL PREMIX BAG ONE (07:24)
[2024-07-28] MEDS ORDERED: MIDAZOLAM 2 MG/2 ML VIAL ONE (07:24)
[2024-07-28] MEDS ORDERED: LIDOCAINE 1% INJ 10MG/ML (20 ML MDV) ONE (07:24)
[2024-07-28] MEDS ORDERED: PROPOFOL 10 MG/ML 20 ML VIAL IV ONE (07:24)
[2024-07-28] MEDS ORDERED: SUCCINYLCHOLINE CHLORIDE 200 MG/10 ML VIAL IV ONE (07:24)
[2024-07-28] MEDS ORDERED: HYDROmorphone (PF) 1 MG/ML ONE (07:24)
[2024-07-28] MEDS: THROMBIN (BOVINE) 5,000 UNIT VIAL TOPICAL ONE (07:30)
[2024-07-28] MEDS: LIDOCAINE 1%-EPI 1:100,000 20 ML VIAL SQ ONE (07:30)
[2024-07-28] MEDS: ceFAZolin 1,000 MG in SODIUM CHLORIDE 0.9% 1,000 ML IRRIGATION ONE (08:21)
[2024-07-28] MEDS: LACTATED RINGERS 1,000 ML IV ONE (08:57)
[2024-07-28] MEDS ORDERED: ACETAMINOPHEN TAB 325 MG TAB PO PRN (11:24)
[2024-07-28] MEDS ORDERED: BENZOCAINE/MENTHOL LOZENG 1 EACH LOZENGE MUCOUS MEM PRN (11:24)
--- NOTE | 2024-07-28 11:33 | P.OP ---
Date of Procedure: 07/28/24 Preoperative Diagnosis: Spondylolisthesis L4-5, severe spinal stenosis L3-4 L4-5, degenerative scoliosis, facet arthrosis L3-4 L4-5, lower extreme radiculopathy, lower extremity weakness, low back pain, degenerative disc disease Postoperative Diagnosis: Same Anesthesia: GETA Pathology: none sent Condition: stable Disposition: PACU Description of Procedure: DESCRIPTION OF PROCEDURE(S): BRIEF OPERATIVE NOTE Preoperative Diagnosis: Spondylolisthesis L4-5, severe spinal stenosis L3-4 L4- 5, degenerative scoliosis, facet arthrosis L3-4 L4-5, lower extreme radiculopathy, lower extremity weakness, low back pain, degenerative disc disease Postoperative Diagnosis: Same Procedure: Laminectomy and decompression L3-4 L4-[address] navigation aided Minimally invasive Posterior lateral decompression facet fusion L3-4 L4-5 Minimally invasive Transforaminal lumbar interbody fusion for a 360 fusion at L3-4 and L4-5 Discectomy for decompression at L3-4 and L4-5 Placement of interbody graft L3-4 and L4-5 Use of computer navigation intraoperatively for fusion and for evaluation of screw placement Local autogenous bone grafting Aspiration of bone marrow from the vertebral body pedicle at L3 on the right Use of bone graft extenders Use of Cell Saver Surgeon: Dr. Ivan Meat Counter Clerk: Denys MATIAS who is present throughout the entire the case persistence during positioning, dissection, exposure, visualization, and all crucial elements of the case as well as closure. Anesthesia: General anesthesia Estimated blood loss: Approximately 150 mL Complications: None apparent Components implanted: K2M minimally invasive [place] pedicle screw system withscrews measuring 6.5 mm in diameter to rods to expandable interbody cages with 10 mL of osteo amp bio4 bone graft substitute and 30 mL of the BX bone fibers to supplement the local autogenous bone graft and bone marrow aspirate Disposition: To recovery room in good stable condition. OPERATIVE INDICATIONS The patient has had severe issues at their lower extremity in her lower back over the past several years with significant worsening over the past several months. Over the past few months the patient had pain at their back and their lower extremities. The patient is having severe radicular symptoms at their lower extremity with weakness. The patient is having significant pain in their back. They are unable to obtain any comfort. We did aggressive conservative treatment with medications therapy and interventional pain management however thery were not having any relief. The patient also showed evidence of a listhesis with some dynamic instability. The patient had evidence of severe stenosis at L4-5 as well as L3-4. The patient has been through conservative treatment. We discussed various treatment options including surgery, and the patient wishes to proceed with surgery We discussed the risk, patient's alternatives and benefits of surgery including but not limited to, risk of bleeding risk of infection, risk of need for further surgery, risk of decreased, loss of motion, muscle function, malunion nonunion, hardware failure, nerve damage, paralysis, heart attack, blindness and . They understood issues with the current pandemic and the possibility of exposure. OPERATIVE SUMMARY After discussing all the risks, patient alternatives and benefits at length, the patient elected to proceed with surgical intervention, signed informed consent, and presented for their procedure. The patient was seen and examined in the preoperative holding area and the surgical site was marked. The patient was given antibiotics and brought to the operating room. The patient was sedated and intubated by anesthesia in standard fashion. The patient was positioned on to the operating room table in a prone position on the appropriate frame which was well-padded and well molded. We were careful to pad any bony prominences and pressure points. We were careful to maintain the patient's cervical spine and good neutral alignment and position throughout. The patient was prepped and draped in a normal standard fashion. An appropriate timeout and keystone protocol performed. We were able to proceed with the surgery. The local wound area was infiltrated with local anesthetic. Over the right iliac crest I was able to make small stab incisions and establish a guidepin screw fixation to the iliac crest 2. I was able place the computer referencing device over the guidepins to establish an appropriate reference point for the Ziem CT navigation. We then were able to place patient in an appropriate drape and do a navigation spin for visualization and 3-D reconstruction of the lumbar spine. I was able utilize C-arm guidance and navigation to establish appropriate position over the pedicles bilaterally at the appropriate levels at L3-4 and 5. With the appropriate levels confirmed was able to make small incisions over the appropriate pedicle sites bilaterally. Utilizing the computer navigation device I was able to establish bony landmarks at the right iliac crest for a bony reference point for the navigation device. I was able to establish a Jamshidi needle over the lateral aspect of the pedicle and advanced the trocar into the pedicle being careful not to breech superiorly inferiorly medially or laterally using computer navigation device. Position was confirmed regularly with AP and lateral images on C-arm and with the computer navigation device at the appropriate levels bilaterally starting at L3 and L4 than L5. I was able to establish the trocar into the pedicle appropriately into the posterior aspect of the vertebral body bilaterally at the appropriate levels. This was done at each of the pedicle positions and each of the vertebrae. At the superior vertebrae I was able to take approximately 25 mL of bone aspiration for use later in the case to supplement the allograft and autograft bone. I was able place the guidewire into the trocar and into the vertebral body appropriately under C-arm guidance. Dissection was taken down over the wire to the appropriate starting position for the screw placed. The appropriate length screw was chosen, threaded over the guidewire and screwed appropriately into the pedicle and vertebral body under C-arm guidance in excellent alignment and position with good bony purchase. This is done at each of the screw sites at the appropriate levels. With the screws intact I tested the screws. All of the screws had no stimulation over 20 mA except for the L5 screw on the right. It was testing approximately 7 mA with stimulation. We did another spin intraoperatively to reassess the position of the screw and it had excellent position and alignment of all the screws particularly at L5 on the right all within the bone and pedicle without any evidence of breach superiorly inferiorly medially or laterally and without any evidence of misplacement. With the screws intact I extended the incision to connect the screw hole sites on the most symptomatic side on the right. I dissected down to establish access over the pars and lamina to the base of the spinous process. I was able to expose the facet joint. The capsule the facet was taken down and showed some significant facet arthrosis at the joint. I was able to use a combination of curettes and Kerrison rongeurs and a high-speed drill to take down the facet joint and do a facetectomy. I was able get excellent foraminal decompression and central decompression with undermining across midline to perform a laminectomy centrally and contralaterally. As able get good central decompressi on. The ligamentum flavum was taken down to further decompress centrally and at bilateral neural foramen. I was able to expose the disc space and visualize the traversing nerve root. Note was made of some disc protrusion and disc herniation that was abutting the traversing nerve root at the level causing further compression of the nerve root. I was able to establish a annulotomy at the appropriate level protecting soft tissue and neural structures. I had to perform discectomy for decompression as well as that for preparation of the interbody space. Note was made of some disc desiccation at the disc. I performed a complete discectomy with accommodation of curettes and rasps and scrapers. I was able get good endplate preparation at the disc space. I sized for the appropriate size interbody spacer protecting the soft tissue and neural structures. I was able to expand the interbody cages under C-arm visualization. The wound was copiously irrigated and suctioned dry. There is no evidence of any dural tear or leak. I was able to pack the disc space with local autogenous bone graft as well as a small amount of bone graft which was also placed into the interbody cage itself. Protecting the soft tissue structures and neural structures I was able place the interbody cage in good alignment and good position with good fit and fill at the interbody space. Position was confirmed with C-arm guidance. Good hemostasis maintained. There is no evidence of any dural tear or leak. The wound was irrigated and suctioned dry. This was done first at L4-5 and then at L3-4 similarly. Of note I tried to explore at the pedicle of L5 and there is no evidence of any screw penetration outside the pedicle. With the hardware intact, intraoperative C-arm imaging was again taken which showed good alignment and position of the hardware at the appropriate levels from L3-L5. We were then able to measure, contour and place the rods and appropriate hardware bilaterally. I was able to place capcrews, tighten them down, and torque them with the torque screwdriver appropriately. Good reduction of the listhesis as well with this intact I was able to place the local autogenous bone graft with additional bone graft enhancer as necessary into the posterior lateral gutters over the decorticated transverse processes and facet joints on the contralateral side. The remainder of the bone graft was placed over the facet joint on the contralateral side after taking down the facet joint capsule. With the bone graft intact, a stable construct, and good decompression at the appropriate levels, we were able to proceed with closure. Good hemostasis was maintained. There is no evidence of dural tear or leak. I again checked the stimulation at L5 on the right and at this point in the case it did not have any stimulation until 17 mA. This was significant improvement. The fascia was closed for a watertight closure. he subcuticular tissue was closed with absorbable suture. The wound was cleaned and dried and dressed with the appropriate dressing. The drapes were broken down. The patient was gently rolled back onto their hospital bed being careful to maintain their cervical spine and good neutral alignment and position. They were woken up by anesthesia, extubated, and brought to the recovery room in good stable condition. The patient will be admitted to the hospital for appropriate postoperative care, medical management and monitoring. We will continue to follow them closely about the postoperative course.
--- NOTE | 2024-07-28 11:45 | FL ---
EXAMINATION TYPE: FL guidance operating room, XR lumbar spine 2 or 3V Intraoperative/procedural fluor oscopic services were provided. Total fluoroscopy time is 41 seconds with a total of 9 submitted imag es to PACS. Please see the operative/procedural note for further details. DAP: 666 cGycm2
[2024-07-28] MEDS: HYDROmorphone 0.5 MG/0.5 ML SYRINGE IVP PRN (12:10)
[2024-07-28] MEDS: ACETAMINOPHEN TAB 325 MG TAB PO SCH (14:32)
[2024-07-28] MEDS: HYDROmorphone 1 MG/ML 1 ML SYRINGE IVP PRN (14:43)
[2024-07-28] MEDS: ONDANSETRON 4 MG/2 ML VIAL IVP PRN (16:43)
[2024-07-28] MEDS: HYDROmorphone 0.5 MG/0.5 ML SYRINGE IVP STA (16:44)
--- NOTE | 2024-07-28 16:55 | P.CONS ---
History of Present Illness - Reason for Consult Consult date: 07/28/24 - Chief Complaint medical management - History of Present Illness 74-year-old male with medical history of hypertension, chronic kidney disease stage III presented for evaluation of elective L3-L5 discectomy and laminectomy with posterior fusion. Orthopedic surgery consulted medicine for medical management. Patient's only complaint at this time is nausea and pain in the back. Otherwise, history is limited due to patient distress. Upon review, patient presented for elective surgery secondary to spinal stenosis which was graded as severe on imaging. Upon evaluation, patient was afebrile, 150/76, heart rate 87, 97% on 2 L nasal cannula. No labs are available to review. Postoperative lumbar spine x-ray was completed. Gen: In NAD, non-toxic HEENT: normocephalic, atraumatic, hearing acuity is intant, mucous membranes moist CVS: perfusing all extremities well, no pitting edema, Respiratory: symmetric chest expansion, no accessory muscle use, GI: soft, NTTP, ND, : no suprapubic tenderness, no CVA tenderness MSK/Derm: no rashes, cyanosis Neuro: CN II-XII intact, no motor weakness, Psych: cooperative, euthymic mood, judgment and insight is intact Assessment/plan: Hypertension Resume patient's amlodipine Chronic kidney disease, stage III Continue to monitor basic metabolic panel tomorrow morning Status post L3-5 laminectomy with posterior fusion DVT prophylaxis, pain control per primary team I gave an additional dose of Dilaudid 0.5 IV once for pain control Zofran as needed for nausea control Notably, this patient is on Plavix at home according to medication history, it is not clear why there is an indication for Plavix in this patient, needs to be investigated further when patient is more amenable to providing history or if there are outpatient records available, for now, primary services opted to resume this medication Past Medical History Past Medical History: Cancer, Hypertension, Prostate Disorder, Renal Disease Additional Past Medical History / Comment(s): lymphoma ( tx with radiation & chemo, caused kidney issues), stage 4 kidney disease, polyneuropathy(finger and lips numb) History of Any Multi-Drug Resistant Organisms: None Reported Past Surgical History: Appendectomy, Cholecystectomy, Tonsillectomy Additional Past Surgical History / Comment(s): spleen, non-hodgkins lymphona, TURP. colonoscopy Past Anesthesia/Blood Transfusion Reactions: No Reported Reaction Past Psychological History: No Psychological Hx Reported Smoking Status: Former smoker Past Alcohol Use History: None Reported Additional Past Alcohol Use History / Comment(s): quit 30 yrs ago. 2ppd Past Drug Use History: None Reported - Past Family History Mother Family Medical History: Coronary Artery Disease (CAD) Sister(s) Additional Family Medical History / Comment(s): diverticulitis, kidney stones. another sister with kidney issues Medications and Allergies Home Medications Medication Instructions Recorded Confirmed Type Cholecalciferol (Vitamin D3) 125 mcg PO DAILY 10/03/21 07/28/24 History [Vitamin D3 (125 MCG = 5,000 IU)] Clopidogrel Bisulfate [Clopidogrel] 75 mg PO DAILY 08/05/23 07/28/24 History amLODIPine BESYLATE 5 mg PO DAILY 08/05/23 07/28/24 History Acetaminophen Tab [Tylenol] 650 mg PO Q6H 07/27/24 07/28/24 History Celecoxib [CeleBREX] 200 mg PO BID 07/27/24 07/28/24 History Cyclobenzaprine [Flexeril] 10 mg PO HS 07/27/24 07/28/24 History Allergies Allergy/AdvReac Type Severity Reaction Status Date / Time No Known Allergies Allergy Verified 07/28/24 06:34 Physical Exam Osteopathic Statement: *. No significant issues noted on an osteopathic structural exam other than those noted in the History and Physical/Consult. Vitals: Vital Signs Temp Pulse Pulse Resp BP BP Pulse Ox 07/28/24 16:32 87 150/76 97 07/28/24 16:31 94 150/81 95 07/28/24 16:30 102 H 158/86 07/28/24 16:29 94 16 157/83 97 07/28/24 16:28 94 157/83 96 07/28/24 13:45 101 H 16 167/80 99 07/28/24 13:30 103 H 16 157/85 100 07/28/24 13:15 93 16 132/63 93 L 07/28/24 13:00 88 16 126/67 99 07/28/24 12:45 84 16 143/70 99 07/28/24 12:30 83 16 156/87 100 07/28/24 12:15 85 16 177/74 100 07/28/24 12:05 90 16 145/74 100 07/28/24 12:00 97.6 F 100 16 181/90 100 07/28/24 11:50 86 16 135/70 100 07/28/24 11:38 87 16 141/77 100 07/28/24 06:41 98.0 F 83 18 177/96 98 Intake and Output 07/28/24 07/28/24 07/28/24 06:59 14:59 22:59 Intake Total 2050 Output Total 765 Balance 1286 Intake: IV 2050 Output: Urine 615 Estimated Blood Loss 150 Other: Weight 55.2 kg 55.2 kg
[2024-07-28] MEDS: CYCLOBENZAPRINE 10 MG TAB PO SCH (20:36)
[2024-07-28] MEDS: SODIUM CHLORIDE 0.9% 1,000 ML IV SCH (20:36)
[2024-07-29] MEDS: TRIMETHOBENZAMIDE 100 MG/ML 2 ML VIAL IM STA (05:10)
[2024-07-29] MEDS: HYDROmorphone 0.5 MG/0.5 ML SYRINGE IVP PRN (05:35)
[2024-07-29] MEDS: amLODIPine 5 MG TAB PO SCH (08:12)
[2024-07-29] MEDS: CLOPIDOGREL 75 MG TAB PO SCH (08:12)
[2024-07-29] MEDS: SENNOSIDES-DOCUSATE SODIUM 1 EACH TAB PO SCH (08:12)
[2024-07-29] MEDS: CHOLECALCIFEROL 125 MCG (5000 IU) TABLET PO SCH (08:12)
--- NOTE | 2024-07-29 09:18 | P.PN ---
Progress Note - Text Progress Note Date: 07/29/24 Postoperative day #1 Patient is seen and examined today at bedside. The patient has some pain around the surgical site as expected. Pain is being controlled with medication. He is tolerating his regular diet appropriately. He had nausea last night but does not feel nauseous this morning. He says he is hungry. Physical Exam Afebrile with stable vital signs Abdomen is soft nontender. Chest has good excursion deep and space expiration The incision site is clean dry and intact. No erythema there is no purulence. The dressing is intact Extremities have not had neurologic change from prior to surgery. He has sustained dorsiflexion plantarflexion EHL intact Calves and thighs were soft nontender without evidence of DVT. Assessment/Plan Postoperative day #1 status post minimally invasive decompression fusion L3-4 L4-5 for his severe spinal stenosis with lower extremity colopathy and neurogenic claudication we will get him up out of bed today with physical therapy. Will discontinue the Frankel. Patient is progressing as expected from the surgery. We will continue to increase the patient's mobilization with therapy. We will continue pain control with oral or IV medications. We'll continue to follow patient closely.
[2024-07-29 10:58] LABS: HCT 30.8 % (39.6-50.0); HGB 9.9 g/dL (13.0-17.0); MCHC 32.1 g/dL (32.0-37.0); MCV 99.7 FL (80.0-97.0); Mean Platelet Volume 11.3 FL (9.5-12.2); NRBC Per 100 WBC 0 X 10*3/uL (0.00-0.01); Platelet Count 229 X 10*3/uL (140-440); RBC 3.09 X 10*6/uL (4.40-5.60); RDW 14.4 % (11.5-14.5); WBC 8.41 X 10*3/uL (4.50-10.00)
[2024-07-29 11:15] LABS: BUN/Creat Ratio 19.73 Ratio (12.00-20.00); Blood Urea Nitrogen 29.6 mg/dL (9.0-27.0); Calcium 8.4 mg/dL (8.7-10.3); Carbon Dioxide 22.6 mmol/L (21.6-31.8); Chloride 104 mmol/L (96-109); Glucose 106 mg/dL (70-110); Potassium 4.7 mmol/L (3.5-5.5); Sodium 137 mmol/L (135-145)
[2024-07-29 11:49] LABS: Acanthocytes 2+; Basophils # (A) 0.02 X 10*3/uL (0.00-0.10); Basophils % (A) 0.2 %; Eosinophils # (A) 0.21 X 10*3/uL (0.04-0.35); Eosinophils % (A) 2.5 %; Lymphocytes # (A) 1.26 X 10*3/uL (0.90-5.00); Monocytes # (A) 1.59 X 10*3/uL (0.20-1.00); Monocytes % (A) 18.9 %; Neutrophils # (A) 5.28 X 10*3/uL (1.80-7.70); Neutrophils % (A) 62.8 %
--- NOTE | 2024-07-29 14:41 | P.PN ---
Subjective Progress Note Date: 07/29/24 74-year-old male with medical history of hypertension, chronic kidney disease stage III presented for evaluation of elective L3-L5 discectomy and laminectomy with posterior fusion. Orthopedic surgery consulted medicine for medical management. 07/29 Patient was seen and examined. He reports back pain, 6-7/10 severity. Frankel discontinued, has not urinated yet. No bowel movement but passing gas. CBC and BMP significant for RBC 3.09, Hg 9.9, Hct 30.8, MCV 99.7, BUN 29.6, Ca 8.4. Gen: In NAD, non-toxic HEENT: normocephalic, atraumatic, hearing acuity is intant, mucous membranes moist CVS: perfusing all extremities well, no pitting edema, Respiratory: symmetric chest expansion, no accessory muscle use, GI: soft, NTTP, ND : no suprapubic tenderness, no CVA tenderness MSK/Derm: no rashes, cyanosis Neuro: no motor weakness, Psych: cooperative, euthymic mood, judgment and insight is intact Acute blood loss anemia Expected result of surgery Monitor Hg Transfuse if Hg < 7. Hypertension Continue Amlodipine 5 mg PO QD. Chronic kidney disease stage III at baseline. Objective - Vital Signs Vital signs: Vital Signs Temp 98.3 F 07/29/24 07:21 Pulse 86 07/29/24 08:10 Resp 15 07/29/24 08:10 BP 129/64 07/29/24 07:21 Pulse Ox 97 07/29/24 07:21 FiO2 Intake & Output 07/28/24 07/29/24 07/29/24 18:59 06:59 18:59 Intake Total 2050 Output Total 073 319 3637 Balance 1286 -600 -1700 Weight 55.2 kg Intake: IV 2050 Output: Urine 640 315 1086 Uretheral (Frankel) 1700 Estimated Blood Loss 150 Other: Voiding Method Indwelling Catheter # Voids 1 - Labs CBC & Chem 7: 07/29/24 06:15 07/29/24 06:15 Labs: Abnormal Lab Results - Last 24 Hours (Table) 07/29/24 07/29/24 Range/Units 06:15 06:15 RBC 3.09 L (4.40-5.60) X 10*6/uL Hgb 9.9 L (13.0-17.0) g/dL Hct 30.8 L (39.6-50.0) % MCV 99.7 H (80.0-97.0) FL Immature Gran # 0.05 H (0.00-0.04) X 10*3/uL Monocytes # 1.59 H (0.20-1.00) X 10*3/uL Acanthocytes (Spur) 2+ A BUN 29.6 H (9.0-27.0) mg/dL Est GFR (CKD-EPI) 48 L (>=60) Calcium 8.4 L (8.7-10.3) mg/dL
[2024-07-29] MEDS: HYDROcodone/APAP 5-325MG 1 EACH TAB PO PRN (20:08)
[2024-07-30] MEDS: CYCLOBENZAPRINE 10 MG TAB PO PRN (03:43)
--- NOTE | 2024-07-30 08:55 | P.DS ---
Providers Date of admission: 07/28/2024 Expected date of discharge: 07/30/24 Attending physician: Melvin Ivan Consults: 07/28/24 11:24 Consult Physician Routine Consulting Provider: Terry Madden Consult Reason/Comments: Medical management Do you want consulting provider notified?: Yes Primary care physician: Roby Connolly - Discharge Diagnosis(es) (1) Status post lumbar spinal fusion Current Visit: Yes Status: Acute (2) Low back pain Current Visit: Yes Status: Acute (3) Radiculopathy with lower extremity symptoms Current Visit: Yes Status: Acute (4) Lumbar spinal stenosis Current Visit: Yes Status: Acute (5) Lumbar facet arthropathy Current Visit: Yes Status: Acute (6) Spondylolisthesis of lumbar region Current Visit: Yes Status: Acute (7) Chronic kidney disease, stage 3 Current Visit: Yes Status: Acute (8) Hypertension Current Visit: Yes Status: Acute (9) Acute blood loss anemia Current Visit: Yes Status: Acute Hospital Course: This is a pleasant 74 year old male who presented with Spondylolisthesis L4-5, severe spinal stenosis L3-4 and L4-5, degenerative scoliosis, facet arthrosis L3-4 and L4-5, lower extreme radiculopathy, lower extremity weakness, low back pain, degenerative disc disease who failed outpatient conservative therapy. He was admitted for an L3-4 and L4-5 minimally invasive posterior lateral decompression and fusion with transforaminal lumbar interbody fusion. The patient tolerated the procedure well and did well postoperatively. He is eating and voiding without difficulty. His abdomen is soft. He is passing gas. He has been able to ambulate with the assistance of a walker. He has some pain at the surgical sites at his lumbar spine but feels his pain is adequately controlled. He denies any lower extremity weakness or radiculopathy bilaterally. He feels he is ready for discharge home today. Condition on day of discharge stable. Patient will be discharged home. Patient was cleared preoperatively for surgery by Dr. Connolly. Patient currently denies any nausea, vomiting, fever, or chills. Patient may shower Optifoam dressing intact. Patient may remove Optifoam dressing in 3 days and shower without a dressing at that time. Patient should refrain from driving until at least after their first follow-up appointment in the office. Patient should avoid excessive bending, lifting, and twisting; no lifting greater than 10 pounds. MAPS has been reviewed today, 07/30/2024, with an Overall Overdose Risk Score of 90. An "Opiod Start Talking" Form has been signed and placed in the patient's chart. A prescription has been written for hydrocodone 5 mg / 325 mg, 1 tab, every 6 hours, as needed for acute pain, dispense #28. Prescription also in for baclofen 10 mg, 1 tab, 3 times daily, as needed for muscle spasm, dispense #60. Prescription also written for Senokot-S, 1 tab, twice daily, as needed for constipation, dispense #60. Prescriptions are sent to the patient's regular pharmacy. Patient's other medical diagnoses include hypertension, chronic kidney disease stage III, and acute blood loss anemia. Patient must be cleared by medicine prior to discharge home today. Physical Exam on day of discharge: Patient is awake, alert, and oriented 3 Vital signs stable Good chest excursion with deep inspiration and expiration Abdomen soft nontender No signs or symptoms of DVT; no calf pain Extensor hallucis longus, plantarflexion, and dorsiflexion positive sustained bilateral lower extremities Incisions are clean, dry, and intact; no erythema, purulence, or signs of infection Optifoam dressings are intact No pain with palpation over the surgical sites at the lumbar spine and right iliac crest Procedures: L3-4 and L4-5 minimally invasive posterior lateral decompression and fusion with transforaminal lumbar interbody fusion Patient Condition at Discharge: Stable Plan - Discharge Summary Discharge Rx Participant: No New Discharge Prescriptions: New Baclofen 10 mg PO TID PRN #60 tab PRN Reason: Spasms Sennosides-Docusate Sodium [Senokot-S] 1 tab PO BID PRN #60 tablet PRN Reason: Constipation HYDROcodone/APAP 5-325MG [[place] 5] 1 each PO Q6HR PRN #28 tab PRN Reason: Pain No Action Clopidogrel Bisulfate [Clopidogrel] 75 mg PO DAILY Cyclobenzaprine [Flexeril] 10 mg PO HS Cholecalciferol (Vitamin D3) [Vitamin D3 (125 MCG = 5,000 IU)] 125 mcg PO DAILY amLODIPine BESYLATE 5 mg PO DAILY Celecoxib [CeleBREX] 200 mg PO BID Acetaminophen Tab [Tylenol] 650 mg PO Q6H Discharge Medication List Cholecalciferol (Vitamin D3) [Vitamin D3 (125 MCG = 5,000 IU)] 125 mcg PO DAILY 10/03/21 [History] Clopidogrel Bisulfate [Clopidogrel] 75 mg PO DAILY 08/05/23 [History] amLODIPine BESYLATE 5 mg PO DAILY 08/05/23 [History] Acetaminophen Tab [Tylenol] 650 mg PO Q6H 07/27/24 [History] Celecoxib [CeleBREX] 200 mg PO BID 07/27/24 [History] Cyclobenzaprine [Flexeril] 10 mg PO HS 07/27/24 [History] Baclofen 10 mg PO TID PRN #60 tab 07/30/24 [Rx] HYDROcodone/APAP 5-325MG [[place] 5] 1 each PO Q6HR PRN #28 tab 07/30/24 [Rx] Sennosides-Docusate Sodium [Senokot-S] 1 tab PO BID PRN #60 tablet 07/30/24 [Rx] Follow up Appointment(s)/Referral(s): [facility] [NON-STAFF] - As Needed Denys Kenyon, ROSALINE [PHYSICIAN LAY UP OPERATOR] - 2 Weeks (Patient may follow-up with Denys Kenyon PA-C or Dr. Loki Ivan at [facility] in 2-3 weeks following discharge. ) Activity/Diet/Wound Care/Special Instructions: 1. Patient may shower with Optifoam dressing intact. 2. Patient may remove Optifoam dressing in 3 days and shower without a dressing at that time. 3. Patient should refrain from driving until at least after their first follow- up appointment in the office. 4. Patient should avoid excessive bending, twisting, lifting; avoid overhead lifting; no lifting greater than 10 pounds 5. Take medications as prescribed 6. Patient should avoid anti-inflammatory medications over the next 6 weeks postoperatively 7. Do not soak in tub Discharge Disposition: HOME SELF-CARE
[2024-07-30 09:45] VITALS: BP 138/73; PULSE 92; RESP 18; TEMP 98.5
== END 2024-07-30 11:18 | disposition home or self-care (01) ==
LOC: OR 06:03 → 4SSUR 11:17 → OR 07-30 11:18
PROVIDERS: ATTEND Orthopaedic Surgery Orthopaedic Surgery of the Spine
DX: M43.16 Spondylolisthesis, lumbar region (principal); M48.061 Spinal stenosis, lumbar region without neurogenic claudication; M51.16 Intervertebral disc disorders with radiculopathy, lumbar region; M47.26 Other spondylosis with radiculopathy, lumbar region; I12.9 Hypertensive chronic kidney disease with stage 1 through stage 4 chronic kidney disease, or unspecified chronic kidney disease; N18.30 Chronic kidney disease, stage 3 unspecified; M41.80 Other forms of scoliosis, site unspecified; D62 Acute posthemorrhagic anemia; Z79.02 Long term (current) use of antithrombotics/antiplatelets; Z79.899 Other long term (current) drug therapy; Z87.891 Personal history of nicotine dependence; Z90.49 Acquired absence of other specified parts of digestive tract; Z90.89 Acquired absence of other organs

== ENCOUNTER 2024-08-01 07:50 | Observation (INO) | payer MEDICARE ==
[2024-08-01] MEDS ORDERED: HEPARIN SODIUM 1,000 UN/ML (10ML VL) IV PRN (07:54)
--- NOTE | 2024-08-01 08:07 | ED ---
General Adult HPI - General Chief complaint: Shortness of Breath Stated complaint: KAREN Time Seen by Provider: 08/01/24 07:52 Source: patient, EMS Mode of arrival: EMS Limitations: physical limitation - History of Present Illness Initial comments: Dictation was produced using [employer] dictation software. please excuse any grammatical, word or spelling errors. Chief Complaint: 74-year-old male presents to the emergency department of breath History of Present Illness: 74-year-old male presents emergency department for shortness of breath. Patient recently had spinal surgery with Dr. Moncho tom. Date of surgery was 3 days ago. Acutely short of breath this morning. Denies any lower extremity symptoms. Patient feels extremely short of breath. He has no history of anxiety. Patient denies any cough. He denies any fever, chills or night sweats. Patient states the only medications he takes are the pain medications for his recent surgery. Tobacco use. No history of COPD or asthma. Advised patient seem to be diminished and he was placed on CPAP. Patient also given breathing treatment which EMS reported that his symptoms improved. The ROS documented in this emergency department record has been reviewed and confirmed by me. Those systems with pertinent positive or negative responses have been documented in the HPI. All other systems are other negative and/or noncontributory. - Related Data Home Medications Medication Instructions Recorded Confirmed Cholecalciferol (Vitamin D3) 125 mcg PO DAILY 10/03/21 07/28/24 [Vitamin D3 (125 MCG = 5,000 IU)] Clopidogrel Bisulfate [Clopidogrel] 75 mg PO DAILY 08/05/23 07/28/24 amLODIPine BESYLATE 5 mg PO DAILY 08/05/23 07/28/24 Acetaminophen Tab [Tylenol] 650 mg PO Q6H 07/27/24 07/28/24 Celecoxib [CeleBREX] 200 mg PO BID 07/27/24 07/28/24 Cyclobenzaprine [Flexeril] 10 mg PO HS 07/27/24 07/28/24 Previous Rx's Medication Instructions Recorded Baclofen 10 mg PO TID PRN #60 tab 07/30/24 HYDROcodone/APAP 5-325MG [[place] 5] 1 each PO Q6HR PRN #28 tab 07/30/24 Sennosides-Docusate Sodium 1 tab PO BID PRN #60 tablet 07/30/24 [Senokot-S] Allergies Allergy/AdvReac Type Severity Reaction Status Date / Time No Known Allergies Allergy Verified 07/28/24 06:34 Review of Systems ROS Statement: Those systems with pertinent positive or pertinent negative responses have been documented in the HPI. ROS Other: All systems not noted in ROS Statement are negative. Past Medical History Past Medical History: Cancer, Hypertension, Prostate Disorder, Renal Disease Additional Past Medical History / Comment(s): lymphoma ( tx with radiation & chemo, caused kidney issues), stage 4 kidney disease, polyneuropathy(finger and lips numb) History of Any Multi-Drug Resistant Organisms: None Reported Past Surgical History: Appendectomy, Cholecystectomy, Tonsillectomy Additional Past Surgical History / Comment(s): spleen, non-hodgkins lymphona, T URP. colonoscopy Past Anesthesia/Blood Transfusion Reactions: No Reported Reaction Past Psychological History: No Psychological Hx Reported Smoking Status: Former smoker Past Alcohol Use History: None Reported Past Drug Use History: None Reported - Past Family History Mother Family Medical History: Coronary Artery Disease (CAD) Sister(s) Additional Family Medical History / Comment(s): diverticulitis, kidney stones. another sister with kidney issues General Exam - General Exam Comments Initial Comments: PHYSICAL EXAM: General Impression: Alert and oriented x3,, tachypneic HEENT: Normocephalic atraumatic, extra-ocular movements intact, pupils equal and reactive to light bilaterally, mucous membranes moist. Cardiovascular: Heart regular rate and rhythm Chest:, Clear lung sounds bilaterally Abdomen: abdomen soft, non-tender, non-distended, no organomegaly Musculoskeletal: Pulses present and equal in all extremities, no peripheral edema Motor: no focal deficits noted Neurological: CN II-XII grossly intact, no focal motor or sensory deficits noted Skin: Intact with no visualized rashes Psych: Anxious Limitations: physical limitation Course Vital Signs 08/01/24 08/01/24 08/01/24 07:51 08:00 08:45 Temperature 98.3 F Pulse Rate 135 H 116 H Respiratory 33 H 24 Rate Blood Pressure 183/99 171/92 164/86 O2 Sat by Pulse 98 97 Oximetry 08/01/24 09:00 Temperature Pulse Rate 117 H Respiratory 24 Rate Blood Pressure 168/80 O2 Sat by Pulse 99 Oximetry EKG Findings - EKG Comments: EKG Findings:: My EKG interpretation: Ventricular rate 117, sinus tachycardia,. #183, QRS 83, QTc 379. No HI prolongation, no QTC prolongation, no ST or T-wave changes noted. Overall, this EKG is unremarkable Medical Decision Making - Medical Decision Making Was pt. sent in by a medical professional or institution (FLORENCIO Amato, SPEECH LANGUAGE PATHOLOGIST PRN, urgent care, hospital, or retirement...) When possible be specific @ -No Did you speak to anyone other than the patient for history (EMS, parent, family, police, friend...)? What history was obtained from this source @ -History obtained from EMS as described above Did you review nursing and triage notes (agree or disagree)? Why? @ -I reviewed and agree with nursing and triage notes Were old charts reviewed (outside hosp., previous admission, EMS record, old EKG, old radiological studies, urgent care reports/EKG's, retirement records)? Report findings @ -Reviewed show the patient recently had spine surgery Differential Diagnosis (chest pain, altered mental status, abdominal pain women, abdominal pain men, vaginal bleeding, musculoskeletal, weakness, fever, dyspnea, syncope, headache, dizziness, GI bleed, back pain, seizure, CVA, palpatations, mental health)? @ -Differential Dyspnea: Coronary syndrome, arrhythmia, tamponade, asthma, COPD, pulmonary embolism, pneumonia, pneumothorax, pulmonary effusion, anaphylaxis, diabetic ketoacidosis, flailed chest, pulmonary contusion, diaphragmatic rupture, anemia, neuromuscular, this is not meant to be an all-inclusive list. EKG interpreted by me (3pts min.). @ -As above X-rays interpreted by me (1pt min.). @ -None done CT interpreted by me (1pt min.). @ -Angiography of the chest shows no PE and no other acute processes U/S interpreted by me (1pt. min.). @ -None done What testing was considered but not performed or refused? (CT, X-rays, U/S, labs)? Why? @ -None What meds were considered but not given or refused? Why? @ -None Was smoking cessation discussed for >3mins.? @ -No Were there social determinants of health that impacted care today? How? (Homelessness, low income, unemployed, alcoholism, drug addiction, transportation, low edu. Level, literacy, decrease access to med. care, alf, rehab)? @ -No Was there de-escalation of care discussed even if they declined (Discuss DNR or withdrawal of care, Hospice)? DNR status @ -No What co-morbidities impacted this encounter? (DM, HTN, Smoking, COPD, CAD, Cancer, CVA, ARF, Chemo, Hep., AIDS, mental health diagnosis, sleep apnea, morbid obesity)? @ -Recent surgery Was patient admitted / discharged? Hospital course, mention meds given and route, prescriptions, significant lab abnormalities, going to OR and other pertinent info. @ -74-year-old male presents emergency department for acute dyspnea. Patient recently had surgery. Clinical presentation initially was concerning for postoperative pulmonary embolism. Vital signs upon arrival shows tachycardia 135 with respiratory rate of 33. Patient did appear to be slightly anxious. Patient went immediately to CT for CT angiography. CT a does not show any PE. Laboratory evaluation obtained. Coag panel within acceptable limits. Panel shows elevated renal function. Minimal acidosis with a bicarb of 18. Lactic acid level 3.9. Heparin was initially started due to high level concern of pulmonary embolism. After CT angiography was read by radiology. Heparin was discontinued. Patient reevaluated at bedside at 10:36 AM found to be 7 to condition. He is not dyspneic. He does not appear to be in any acute distress. Patient will be admitted observation for a lactic acidosis. Case discussed with Dr. Rios who is willing to accept patient's care for admission. Did you discuss the management of the patient with other professionals (professionals i.e. , PA, SPEECH LANGUAGE PATHOLOGIST PRN, lab, RT, psych nurse, social science professor, roller maker, teacher, special assets officer, pillowcase turner)? Give summary @ -see above Was critical care preformed (if so, how long)? @ -yes, 33 minutes for concerns of impending respiratory failure unstable vital signs Undiagnosed new problem with uncertain prognosis? @ -No Drug Therapy requiring intensive monitoring for toxicity (Heparin, Nitro, I nsulin, Cardizem)? @ -No Were any procedures done? @ -No Diagnosis/symptom? Acute, or Chronic, or Acute on Chronic? Uncomplicated (without systemic symptoms) or Complicated (systemic symptoms)? @ -Lactic acidosis Side effects of treatment? @ -No Exacerbation, Progression, or Severe Exacerbation? @ -No Poses a threat to life or bodily function? How? (Chest pain, USA, AR, pneumonia, PE, COPD, DKA, ARF, appy, cholecystitis, CVA, Diverticulitis, Homicidal, Suicidal, threat to staff... and all critical care pts) @ -yes - Lab Data Result diagrams: 08/01/24 08:03 08/01/24 08:03 Lab Results 08/01/24 08/01/24 08/01/24 Range/Units 08:03 08:03 08:03 WBC 11.3 H (3.8-10.6) k/uL RBC 3.92 L (4.30-5.90) m/uL Hgb 12.5 L (13.0-17.5) gm/dL Hct 38.5 L (39.0-53.0) % MCV 98.3 (80.0-100.0) fL MCH 31.9 (25.0-35.0) pg MCHC 32.4 (31.0-37.0) g/dL RDW 13.9 (11.5-15.5) % Plt Count 339 (150-450) k/uL MPV 8.9 Neutrophils % 70 % Lymphocytes % 19 % Monocytes % 6 % Eosinophils % 2 % Basophils % 0 % Neutrophils # 7.9 H (1.3-7.7) k/uL Lymphocytes # 2.1 (1.0-4.8) k/uL Monocytes # 0.7 (0-1.0) k/uL Eosinophils # 0.2 (0-0.7) k/uL Basophils # 0.0 (0-0.2) k/uL PT (10.0-12.5) sec INR (<1.2) APTT (22.0-30.0) sec Sodium 138 (137-145) mmol/L Potassium 4.3 (3.5-5.1) mmol/L Chloride 106 (98-107) mmol/L Carbon Dioxide 18 L (22-30) mmol/L Anion Gap 14 mmol/L BUN 33 H (9-20) mg/dL Creatinine 1.62 H (0.66-1.25) mg/dL Est GFR (CKD-EPI)AfAm 47 (>60 ml/min/1.73 sqM) Est GFR (CKD-EPI)NonAf 41 (>60 ml/min/1.73 sqM) Glucose 117 H (74-99) mg/dL Plasma Lactic Acid [place] 3.9 H* (0.7-2.0) mmol/L Calcium 10.1 (8.4-10.2) mg/dL Magnesium 2.8 H (1.6-2.3) mg/dL Total Bilirubin 1.3 (0.2-1.3) mg/dL AST 53 (17-59) U/L ALT 19 (4-49) U/L Alkaline Phosphatase 77 (38-126) U/L Troponin I (0.000-0.034) ng/mL NT-Pro-B Natriuret Pep 649 pg/mL Total Protein 8.8 H (6.3-8.2) g/dL Albumin 4.4 (3.5-5.0) g/dL 08/01/24 08/01/24 Range/Units 08:03 09:36 WBC (3.8-10.6) k/uL RBC (4.30-5.90) m/uL Hgb (13.0-17.5) gm/dL Hct (39.0-53.0) % MCV (80.0-100.0) fL MCH (25.0-35.0) pg MCHC (31.0-37.0) g/dL RDW (11.5-15.5) % Plt Count (150-450) k/uL MPV Neutrophils % % Lymphocytes % % Monocytes % % Eosinophils % % Basophils % % Neutrophils # (1.3-7.7) k/uL Lymphocytes # (1.0-4.8) k/uL Monocytes # (0-1.0) k/uL Eosinophils # (0-0.7) k/uL Basophils # (0-0.2) k/uL PT 9.4 L (10.0-12.5) sec INR 0.8 (<1.2) APTT 22.8 (22.0-30.0) sec Sodium (137-145) mmol/L Potassium (3.5-5.1) mmol/L Chloride (98-107) mmol/L Carbon Dioxide (22-30) mmol/L Anion Gap mmol/L BUN (9-20) mg/dL Creatinine (0.66-1.25) mg/dL Est GFR (CKD-EPI)AfAm (>60 ml/min/1.73 sqM) Est GFR (CKD-EPI)NonAf (>60 ml/min/1.73 sqM) Glucose (74-99) mg/dL Plasma Lactic Acid [place] (0.7-2.0) mmol/L Calcium (8.4-10.2) mg/dL Magnesium (1.6-2.3) mg/dL Total Bilirubin (0.2-1.3) mg/dL AST (17-59) U/L ALT (4-49) U/L Alkaline Phosphatase (38-126) U/L Troponin I <0.012 (0.000-0.034) ng/mL NT-Pro-B Natriuret Pep pg/mL Total Protein (6.3-8.2) g/dL Albumin (3.5-5.0) g/dL Disposition Clinical Impression: Lactic acidosis Disposition: ADMITTED IP TO THIS HOSP Condition: Fair Referrals: Roby Connolly MD [Primary Care Provider] - 1-2 days Decision Time: 10:40
[2024-08-01 08:14] LABS: Basophils % (A) 0 %; Eosinophils # (A) 0.2 k/uL (0-0.7); Eosinophils % (A) 2 %; HCT 38.5 % (39.0-53.0); HGB 12.5 gm/dL (13.0-17.5); Lymphocytes # (A) 2.1 k/uL (1.0-4.8); Lymphocytes % (A) 19 %; MCH 31.9 pg (25.0-35.0); MCHC 32.4 g/dL (31.0-37.0); MCV 98.3 fL (80.0-100.0); Mean Platelet Volume 8.9; Monocytes # (A) 0.7 k/uL (0-1.0); Monocytes % (A) 6 %; Neutrophils # (A) 7.9 k/uL (1.3-7.7); Neutrophils % (A) 70 %; Platelet Count 339 k/uL (150-450); RBC 3.92 m/uL (4.30-5.90); RDW 13.9 % (11.5-15.5); WBC 11.3 k/uL (3.8-10.6)
[2024-08-01] MEDS: HEPARIN SODIUM 1,000 UN/ML (10ML VL) IV ONE (08:16)
[2024-08-01] MEDS: HEPARIN SOD,PORK IN 0.45% NACL 25,000 UNIT in 0.45% NACL 1 250ML.BAG IV SCH (08:18)
[2024-08-01 08:45] LABS: NT-Pro-B-Type Natriuretic Pept 649 pg/mL
[2024-08-01 08:58] LABS: African American GFR (CKD) 47 (>60 ml/min/1.73 sqM); Albumin 4.4 g/dL (3.5-5.0); Anion Gap 14 mmol/L; Blood Urea Nitrogen 33 mg/dL (9-20); Calcium 10.1 mg/dL (8.4-10.2); Carbon Dioxide 18 mmol/L (22-30); Chloride 106 mmol/L (98-107); Non-African American GFR(CKD) 41 (>60 ml/min/1.73 sqM); Sodium 138 mmol/L (137-145); Total Bilirubin 1.3 mg/dL (0.2-1.3)
[2024-08-01] MEDS: SODIUM CHLORIDE 0.9% 1,000 ML IV STA (08:58)
[2024-08-01] MEDS: LORazepam 2 MG/ML INJ IV STA (08:58)
[2024-08-01 09:04] LABS: ALT 19 U/L (4-49)
[2024-08-01 09:07] LABS: AST 53 U/L (17-59); Alkaline Phosphatase 77 U/L (38-126); Glucose 117 mg/dL (74-99); Magnesium 2.8 mg/dL (1.6-2.3); Potassium 4.3 mmol/L (3.5-5.1); Total Protein 8.8 g/dL (6.3-8.2)
[2024-08-01 10:17] LABS: INR 0.8 (<1.2); Partial Thromboplastin Time 22.8 sec (22.0-30.0); Prothrombin Time 9.4 sec (10.0-12.5)
--- NOTE | 2024-08-01 10:26 | CT ---
CTA CHEST EXAMINATION TYPE: CT angio chest DATE OF EXAM: 08/01/2024 INDICATION: sob CT DLP: 214.8 mGycm, Automated exposure control for dose reduction was used. CONTRAST: Patient injected with 50 mL of Isovue 370. COMPARISON: None TECHNIQUE: CT of the chest is performed on a spiral scan at 2 mm thick sections. Study is performed with intravenous contrast timed for evaluation for pulmonary embolism. This will limit additional po rtions of the evaluation. 3-D MIP images reconstructed by the technologist are reviewed on the compu ter in the coronal and sagittal planes. FINDINGS: No persistent filling defects are evident to suggest an acute pulmonary embolism. No mediastinal or hilar adenopathy enlarged by CT criteria is evident. The ascending aorta diameter at the level of the main pulmonary artery is 2.8 cm. The main pulmonary artery diameter at the bifurcation is 2.1 cm. There is some mild compressive atelectasis along the posterior left lung base. Lung otherwise appear clear. Limited CT sections were through the upper abdomen. Upper abdomen appears unremarkable. IMPRESSION: 1. No acute pulmonary embolism. 2. Minimal left lower lobe compressive atelectasis.
[2024-08-01] MEDS ORDERED: NALOXONE 0.4 MG/ML 1 ML VIAL IV PRN (10:31)
[2024-08-01] MEDS ORDERED: ACETAMINOPHEN TAB 325 MG TAB PO PRN (10:31)
[2024-08-01] MEDS ORDERED: traMADol 50 MG TAB PO PRN ×2 (11:52→11:57)
[2024-08-01] MEDS ORDERED: IBUPROFEN 400 MG TAB PO PRN (11:52)
--- NOTE | 2024-08-01 12:00 | P.HPIM ---
History of Present Illness H&P Date: 08/01/24 74 year old M with PMH of HTN and CKD stage III presents to the ED for confusion. He was recently admitted after undergoing elective L3-L5 discectomy and laminectomy with posterior fusion with Dr. Ivan. He was discharged on 07/30 after an uneventful hospital course on Solomon and Flexeril PRN. is at bedside providing majority of the history. On Friday, she noted the patient to be excessively sleepy. She had been giving him Solomon 5-325 every 6 hours as prescribed. He slept most of Friday. This morning, she noted him to be confused and hallucinating which prompted her to bring him to the ED. He reports family members that have hallucinated in the past from the use of Solomon. In the ED he underwent extensive evaluation. T 98.3, BP 183/99, HR 135, RR 33, 98% on RA. CBC, Coag panel, CMP significant for WBC 11.3, RBC 3.92, Hg 12.5, Hct 38.5, PT 9.4, bicarb 18, BUN 33, Cr 1.62, glu 117, glu 117, total protein 8.8. Lactic acid 3.9. Mag 2.8. Troponin < 0.012. EKG sinus tachycardia with PVCs. CTA chest negative for PE, LLE atelectasis. Patient is admitted for further workup and management. General: mild distress, no distress, appears at stated age Derm: warm, dry Head: atraumatic, normocephalic, symmetric Eyes: EOMI, no lid lag, anicteric sclera Mouth: no lip lesion, mucus membranes moist Cardiovascular: S1 S2 tachy. No murmurs, rubs or gallops. No edema Lungs: Clear to auscultation bilaterally, no accessory muscle use Ext: No muscle atrophy Neuro: no focal neuro deficits Psych: Alert, oriented, appropriate affect Based on my assessment of this patient, this patient meets a high complexity level of care. Acute metabolic encephalopathy secondary to overuse of Solomon and Flexeril: Avoid Solomon. Tylenol 650 mg PO Q6H scheduled. Avoid NSAIDs due to CKD. Tramadol 25 mg PO TID PRN for severe pain. SIRS: Likely related to above with component of anxiety. No signs of active infe ction. Monitor fever profile. Lactic acidosis: 1L NS bolus in the ED. Start NS at 75 cc/hr. Repeat until negative. Hypermagnesemia Normocytic anemia: Improved since discharge. Hypertension: Amlodipine 2.5 mg PO QD. Possibly worsened due to pain. CKD stage III at baseline CODE STATUS: FULL CODE DVT Prophylaxis: Heparin SQ. GI Prophylaxis: Designated medical POA if patient is not able to make medical decisions for themselves: I have reviewed the following x ray consultant notes: ED note. I have reviewed the results of the following tests: As above. I have ordered the following tests: As above. I have discussed the care of this patient with the following independent historian: . I have independently interpreted the following test below: EKG. I have discussed the management of this patient with the following physician: Dr. Hammer. Past Medical History Past Medical History: Cancer, Hypertension, Prostate Disorder, Renal Disease Additional Past Medical History / Comment(s): lymphoma ( tx with radiation & chemo, caused kidney issues), stage 4 kidney disease, polyneuropathy(finger and lips numb) History of Any Multi-Drug Resistant Organisms: None Reported Past Surgical History: Appendectomy, Cholecystectomy, Tonsillectomy Additional Past Surgical History / Comment(s): spleen, non-hodgkins lymphona, TURP. colonoscopy Past Anesthesia/Blood Transfusion Reactions: No Reported Reaction Past Psychological History: No Psychological Hx Reported Smoking Status: Former smoker Past Alcohol Use History: None Reported Past Drug Use History: None Reported - Past Family History Mother Family Medical History: Coronary Artery Disease (CAD) Sister(s) Additional Family Medical History / Comment(s): diverticulitis, kidney stones. another sister with kidney issues Medications and Allergies Home Medications Medication Instructions Recorded Confirmed Type amLODIPine BESYLATE 5 mg PO DAILY 08/05/23 08/01/24 History Baclofen 10 mg PO TID PRN #60 tab 07/30/24 08/01/24 Rx Allergies Allergy/AdvReac Type Severity Reaction Status Date / Time hydrocodone AdvReac Confusion Verified 08/01/24 11:26 Physical Exam Vitals: Vital Signs Temp Pulse Resp BP Pulse Ox 08/01/24 09:00 117 H 24 168/80 99 08/01/24 08:45 116 H 24 164/86 97 08/01/24 08:00 171/92 08/01/24 07:51 98.3 F 135 H 33 H 183/99 98 Intake and Output 07/31/24 08/01/24 08/01/24 22:59 06:59 14:59 Intake Total 5.724 Balance 5.724 Intake: Intake, IV Titration 5.724 Amount Heparin Sod,Pork in 0.45% 5.724 NaCl 25,000 unit In 0.45 % NaCl 1 250ml.bag @ 18 UNITS/KG/HR 9.038 mls/hr IV .Q24H [facility] Rx#: [id number] Other: Weight 50.213 kg Results CBC & Chem 7: 08/01/24 08:03 08/01/24 08:03 Labs: Abnormal Lab Results - Last 24 Hours (Table) 08/01/24 08/01/24 08/01/24 Range/Units 08:03 08:03 08:03 WBC 11.3 H (3.8-10.6) k/uL RBC 3.92 L (4.30-5.90) m/uL Hgb 12.5 L (13.0-17.5) gm/dL Hct 38.5 L (39.0-53.0) % Neutrophils # 7.9 H (1.3-7.7) k/uL PT (10.0-12.5) sec Carbon Dioxide 18 L (22-30) mmol/L BUN 33 H (9-20) mg/dL Creatinine 1.62 H (0.66-1.25) mg/dL Glucose 117 H (74-99) mg/dL Plasma Lactic Acid Corby 3.9 H* (0.7-2.0) mmol/L Magnesium 2.8 H (1.6-2.3) mg/dL Total Protein 8.8 H (6.3-8.2) g/dL 08/01/24 Range/Units 09:36 WBC (3.8-10.6) k/uL RBC (4.30-5.90) m/uL Hgb (13.0-17.5) gm/dL Hct (39.0-53.0) % Neutrophils # (1.3-7.7) k/uL PT 9.4 L (10.0-12.5) sec Carbon Dioxide (22-30) mmol/L BUN (9-20) mg/dL Creatinine (0.66-1.25) mg/dL Glucose (74-99) mg/dL Plasma Lactic Acid Corby (0.7-2.0) mmol/L Magnesium (1.6-2.3) mg/dL Total Protein (6.3-8.2) g/dL
[2024-08-01] MEDS: amLODIPine 5 MG TAB PO SCH (12:42)
[2024-08-01] MEDS: ACETAMINOPHEN TAB 325 MG TAB PO SCH (12:42)
[2024-08-01] MEDS: SODIUM CHLORIDE 0.9% 1,000 ML IV SCH (12:42)
[2024-08-01] MEDS: HEPARIN SODIUM,PORCINE 5,000 UNIT/ML 1 ML VIAL SQ SCH (19:42)
[2024-08-01] MEDS: ONDANSETRON 4 MG/2 ML VIAL IVP PRN (21:43)
[2024-08-01 23:05] LABS: Glucose,Whole Blood 153 mg/dL (70-110)
[2024-08-02] MEDS: MELATONIN 5 MG TABLET PO ONE (00:24)
[2024-08-02 00:48] LABS: Appearance,Urine Clear (Clear); Bilirubin,Urine Negative (Negative); Blood,Urine Small (Negative); Color,Urine Colorless; Glucose,Urine (UA) Negative (Negative); Ketones,Urine Negative (Negative); Leukocyte Esterase,Urine Negative (Negative); Mucus,Urine Rare /hpf; Nitrite,Urine Negative (Negative); PH, Urine 5.5 (5.0-8.0); Protein,Urine 1+ (Negative); RBC,Urine 1 /hpf (0-5); Specific Gravity,Urine 1.029 (1.001-1.035); Squamous Epithelial Cell,Urine <1 /hpf (0-4); Urobilinogen,Urine <2.0 mg/dL (<2.0); WBC,Urine 1 /hpf (0-5)
[2024-08-02 08:56] VITALS: BP 140/74; PULSE 82; RESP 16; TEMP 97.9
[2024-08-02] MEDS ORDERED: ENOXAPARIN 40 MG/0.4 ML SYRINGE SQ SCH (09:00)
--- NOTE | 2024-08-02 10:53 | P.DS ---
Providers Date of admission: 08/01/24 10:31 Expected date of discharge: 08/02/24 Attending physician: Clari Mata MD Primary care physician: Roby Martinez [facility] Course: 74 year old M with PMH of HTN and CKD stage III presents to the ED for confusion. He was recently admitted after undergoing elective L3-L5 discectomy and laminectomy with posterior fusion with Dr. Ivan. He was discharged on 07/30 after an uneventful hospital course on Foster and Flexeril PRN. is at bedside providing majority of the history. On Friday, she noted the patient to be excessively sleepy. She had been giving him Foster 5-325 every 6 hours as prescribed. He slept most of Friday. This morning, she noted him to be confused and hallucinating which prompted her to bring him to the ED. He reports family members that have hallucinated in the past from the use of Foster. In the ED he underwent extensive evaluation. T 98.3, BP 183/99, HR 135, RR 33, 98% on RA. CBC, Coag panel, CMP significant for WBC 11.3, RBC 3.92, Hg 12.5, Hct 38.5, PT 9.4, bicarb 18, BUN 33, Cr 1.62, glu 117, glu 117, total protein 8.8. Lactic acid 3.9. Mag 2.8. Troponin < 0.012. EKG sinus tachycardia with PVCs. CTA chest negative for PE, LLE atelectasis. Patient is admitted for further workup and management. 08/02 Patient was seen and examined. at bedside. Mentation significantly improved. No more hallucinations. Feels fatigued. Reports left eye blurriness a nd gritty sensation. Lactic acid trended down to 1.5. UA small blood, negative LE or nitrite. Back pain well controlled. Advised to ambulate. Plans for discharge home today if able to ambulate without difficulties. Advised lubricant eye drops for left eye, likely dry eyes. Prescribed Tramadol PRN to be used sparingly for breakthrough pain. Follow up with PCP within 1-[address] Ivan with previously given appointment. Vitals: BP 161/79, HR 84, T 97.6, R 18, 98% on RA. General: no distress, no distress, appears at stated age Derm: warm, dry Head: atraumatic, normocephalic, symmetric Eyes: EOMI, no lid lag, anicteric sclera Mouth: no lip lesion, mucus membranes moist Cardiovascular: S1 S2 reg. No murmurs, rubs or gallops. No edema Lungs: Clear to auscultation bilaterally, no accessory muscle use Ext: No muscle atrophy Neuro: no focal neuro deficits Psych: Alert, oriented, appropriate affect Discharge Diagnosis: Acute metabolic encephalopathy secondary to overuse of Foster and Flexeril: Avoid Foster. Tylenol 650 mg PO Q6H scheduled. Avoid NSAIDs due to CKD. Tramadol 25 mg PO TID PRN for severe breakthrough pain. SIRS: Likely related to above with component of anxiety. No signs of active infection. Monitor fever profile. Keratoconjunctivitis sicca: Advised lubricant eye drops. Follow up with Opthalmology if symptoms do not improve in 1-2 days. Hypermagnesemia Normocytic anemia: Improved since discharge. Hypertension: Amlodipine 2.5 mg PO QD. Possibly worsened due to pain. CKD stage III at baseline Resolved: Lactic acidosis This complex discharge took 35 minutes to complete. Patient Condition at Discharge: Stable Plan - Discharge Summary Discharge Rx Participant: No New Discharge Prescriptions: New Acetaminophen Tab [Tylenol] 650 mg PO Q6HR PRN tab PRN Reason: Pain traMADol HCl [Ultram] 25 mg PO TID PRN #9 tab PRN Reason: Severe Breakthrough Pain Continue amLODIPine BESYLATE 5 mg PO DAILY Discontinued Baclofen 10 mg PO TID PRN #60 tab PRN Reason: Spasms Discharge Medication List amLODIPine BESYLATE 5 mg PO DAILY 08/05/23 [History] Acetaminophen Tab [Tylenol] 650 mg PO Q6HR PRN tab 08/02/24 [Rx] traMADol HCl [Ultram] 25 mg PO TID PRN #9 tab 08/02/24 [Rx] Follow up Appointment(s)/Referral(s): Roby Connolly MD [Primary Care Provider] - 1-2 days Activity/Diet/Wound Care/Special Instructions: Diet: Low salt Discharge Disposition: HOME SELF-CARE
[2024-08-02] MEDS ORDERED: MELATONIN 5 MG TABLET PO ONE (23:37)
== END 2024-08-02 12:32 | disposition home or self-care (01) ==
LOC: EC 07:50 → 3SCARD 10:31
PROVIDERS: ADMIT Family Medicine; ATTEND Family Medicine
DX: G93.41 Metabolic encephalopathy (principal); R65.10 Systemic inflammatory response syndrome (SIRS) of non-infectious origin without acute organ dysfunction; E87.20 Acidosis, unspecified; H16.229 Keratoconjunctivitis sicca, not specified as Sjogren's, unspecified eye; E83.41 Hypermagnesemia; D64.9 Anemia, unspecified; I12.9 Hypertensive chronic kidney disease with stage 1 through stage 4 chronic kidney disease, or unspecified chronic kidney disease; N18.4 Chronic kidney disease, stage 4 (severe); Z85.72 Personal history of non-Hodgkin lymphomas; Z87.891 Personal history of nicotine dependence; Z92.21 Personal history of antineoplastic chemotherapy; Z92.3 Personal history of irradiation; Z79.02 Long term (current) use of antithrombotics/antiplatelets; Z79.1 Long term (current) use of non-steroidal anti-inflammatories (NSAID); Z79.899 Other long term (current) drug therapy; Z88.5 Allergy status to narcotic agent
CPT/HCPCS: 36415; 71275; 80053; 81001; 83605; 83735; 83880; 84484; 85025; 85610; 85730; 87636; 93005; 96365; 96366; 96372; 96375; 99285

== ENCOUNTER 2024-11-26 22:19 | Emergency (ER) | payer MEDICARE ==
[2024-11-26 22:26] VITALS: TEMP 98.2
--- NOTE | 2024-11-26 22:51 | ED ---
Dizziness HPI - General Chief Complaint: Dizziness Stated Complaint: dizziness, hypertension Time Seen by Provider: 11/26/24 22:51 Source: patient Mode of arrival: wheelchair Limitations: no limitations - History of Present Illness Initial Comments: 74-year-old male presenting with chief complaint of dizziness. Symptoms started today, patient took a Dramamine and a nap thinking that would help, however when he woke up he was still dizzy. No headache. He is having some mild blurred vision. Some nausea with no vomiting. He also noted that his blood pressure was high at home, he has been taking his antihypertensives as prescribed. No chest pain or difficulty breathing. No numbness, tingling, weakness, speech difficulties, recent injuries or falls, neck pain, URI-like symptoms, abdominal pain - Related Data Home Medications Medication Instructions Recorded Confirmed amLODIPine BESYLATE 5 mg PO DAILY 08/05/23 08/01/24 Previous Rx's Medication Instructions Recorded Acetaminophen Tab [Tylenol] 650 mg PO Q6HR PRN tab 08/02/24 traMADol HCl [Ultram] 25 mg PO TID PRN #9 tab 08/02/24 Meclizine [Antivert] 25 mg PO BID PRN #20 tab 11/27/24 Allergies Allergy/AdvReac Type Severity Reaction Status Date / Time hydrocodone AdvReac Confusion Verified 11/26/24 22:22 Review of Systems ROS Statement: Those systems with pertinent positive or pertinent negative responses have been documented in the HPI. ROS Other: All systems not noted in ROS Statement are negative. Past Medical History Past Medical History: Cancer, Hypertension, Prostate Disorder, Renal Disease Additional Past Medical History / Comment(s): lymphoma ( tx with radiation & chemo, caused kidney issues), stage 4 kidney disease, polyneuropathy(finger and lips numb), glaucoma History of Any Multi-Drug Resistant Organisms: None Reported Past Surgical History: Appendectomy, Cholecystectomy, Tonsillectomy Additional Past Surgical History / Comment(s): spleen, non-hodgkins lymphona, TURP. colonoscopy, Spinal Fusion L3-5 and lamenectomy 07/24 Past Anesthesia/Blood Transfusion Reactions: No Reported Reaction Past Psychological History: No Psychological Hx Reported Smoking Status: Never smoker Past Alcohol Use History: None Reported Past Drug Use History: None Reported - Past Family History Mother Family Medical History: Coronary Artery Disease (CAD) Sister(s) Additional Family Medical History / Comment(s): diverticulitis, kidney stones. another sister with kidney issues General Exam - General Exam Comments Initial Comments: Visual Physical Exam Vital signs reviewed General: Well-appearing, nontoxic, no acute distress. Head: Normocephalic, atraumatic Eyes: PERRLA, EOMI ENT: Airway patent Chest: Nonlabored breathing Skin: No visual rash, normal skin tone Neuro: Alert and oriented 3 Musculoskeletal: No gross abnormalities Limitations: no limitations General appearance: alert, in no apparent distress Head exam: Present: atraumatic, normocephalic, normal inspection Eye exam: Present: normal appearance, PERRL, EOMI Neck exam: Present: normal inspection. Absent: meningismus Respiratory exam: Present: normal lung sounds bilaterally. Absent: respiratory distress, wheezes, rales, rhonchi, stridor Cardiovascular Exam: Present: regular rate, normal rhythm, normal heart sounds. Absent: systolic murmur, diastolic murmur, rubs, gallop, clicks Neurological exam: Present: alert, oriented X3 Expanded Patient oriented to: Present: person, place, time Speech: Present: fluid speech Cranial nerves: EOM's Intact: Normal, Tongue Deviation: Normal, Facial Sensation: Normal Sensory exam: Upper Extremity Light Touch: Normal, Lower Extremity Light Touch: Normal Motor strength exam: RUE: 5, LUE: 5, RLE: 5, LLE: 5 Eye Response: (4) open spontaneously Motor Response: (6) obeys commands Verbal Response: (5) oriented Jose Angel Total: 15 Psychiatric exam: Present: normal affect, normal mood Skin exam: Present: warm, dry, normal color Course Vital Signs 11/26/24 11/27/24 11/27/24 22:22 00:21 02:21 Temperature 98.2 F Pulse Rate 65 59 L 58 L Respiratory 16 17 17 Rate Blood Pressure 187/91 155/88 153/81 O2 Sat by Pulse 99 98 98 Oximetry Medical Decision Making - Medical Decision Making I performed the quick note portion of this visit, electronically signed Poncho Nathan PA-C Was pt. sent in by a medical professional or institution (FLORENCIO Amato, PATIENT ASSESSMENT COORDINATOR, urgent care, hospital, or senior living...) When possible be specific @ -No Did you speak to anyone other than the patient for history (EMS, parent, family, police, friend...)? What history was obtained from this source @ -No Did you review nursing and triage notes (agree or disagree)? Why? @ -I reviewed and agree with nursing and triage notes Were old charts reviewed (outside hosp., previous admission, EMS record, old EKG, old radiological studies, urgent care reports/EKG's, senior living records)? Report findings @ -No old charts were reviewed Differential Diagnosis (chest pain, altered mental status, abdominal pain women, abdominal pain men, vaginal bleeding, weakness, fever, dyspnea, syncope, headache, dizziness, GI bleed, back pain, seizure, CVA, palpatations, mental health, musculoskeletal)? @ -MDM Differential Dizziness: Benign paroxysmal positional Vertigo, Menieres disease, otitis media, acoustic neuroma, vertebrobasilar insufficiency, cerebellar stroke, encephalitis, hypovolemic, arrhythmia, coronary artery syndrome, anemia this is not meant to be an all-inclusive list EKG interpreted by me (3pts min.). @ -EKG shows sinus bradycardia ventricular rate 50. VA interval 168. QRS 94. QT 419. QTc 394. X-rays interpreted by me (1pt min.). @ -None done CT interpreted by me (1pt min.). @ -CT shows no acute abnormality. Nonspecific white matter changes most commonly seen with small vessel disease U/S interpreted by me (1pt. min.). @ -None done What testing was considered but not performed or refused? (CT, X-rays, U/S, labs)? Why? @ -None What meds were considered but not given or refused? Why? @ -None Did you discuss the management of the patient with other professionals (professionals i.e. , PA, PATIENT ASSESSMENT COORDINATOR, lab, RT, psych nurse, administrator social welfare, business process engineer, teacher, hotel security officer, welfare case worker)? Give summary @ -No Was smoking cessation discussed for >3mins.? @ -No Was critical care preformed (if so, how long)? @ -No Were there social determinants of health that impacted care today? How? (Homelessness, low income, unemployed, alcoholism, drug addiction, transportation, low edu. Level, literacy, decrease access to med. care, group home, rehab)? @ -No Was there de-escalation of care discussed even if they declined (Discuss DNR or withdrawal of care, Hospice)? DNR status @ -No What co-morbidities impacted this encounter? (DM, HTN, Smoking, COPD, CAD, Cancer, CVA, ARF, Chemo, Hep., AIDS, mental health diagnosis, sleep apnea, morbid obesity)? @ -None Was patient admitted / discharged? Hospital course, mention meds given and route, prescriptions, significant lab abnormalities, going to OR and other pertinent info. @ -74-year-old male presenting with chief complaint of dizziness. Patient was also concerned because his blood pressure was elevated at home. Workup is initiated by triage. No leukocytosis or anemia. Patient's elevated BUN and creatinine are consistent with his CKD and previous values. No UTI. Negative troponin. EKG shows sinus bradycardia. Brain CT shows no acute process. Patient was given meclizine and Zofran, on reassessment he reports complete resolution of his symptoms. Patient would like to be discharged home. Provided with meclizine for home. Follow-up with PCP. Report back to ER with any new or worsening symptoms. Discussed return parameters and answered all questions. Patient conveyed verbal understanding and agreed to the plan. I discussed this case in detail with my attending Dr. Mcgrath Undiagnosed new problem with uncertain prognosis? @ -No Drug Therapy requiring intensive monitoring for toxicity (Heparin, Nitro, Insulin, Cardizem)? @ -No Were any procedures done? @ -No Diagnosis/symptom? @ -Dizziness Acute, or Chronic, or Acute on Chronic? @ -Acute Uncomplicated (without systemic symptoms) or Complicated (systemic symptoms)? @ -complicated Side effects of treatment? @ -No Exacerbation, Progression, or Severe Exacerbation? @ -No Poses a threat to life or bodily function? How? (Chest pain, USA, PR, pneumonia, PE, COPD, DKA, ARF, appy, cholecystitis, CVA, Diverticulitis, Homicidal, Suicidal, threat to staff... and all critical care pts) @ -Low likelihood - Lab Data Result diagrams: 11/27/24 00:06 11/27/24 00:06 Lab Results 11/27/24 11/27/24 11/27/24 Range/Units 00:06 00:06 00:06 WBC 5.3 (3.8-10.6) k/uL RBC 4.15 L (4.30-5.90) m/uL Hgb 13.0 (13.0-17.5) gm/dL Hct 40.6 (39.0-53.0) % MCV 97.8 (80.0-100.0) fL MCH 31.2 (25.0-35.0) pg MCHC 31.9 (31.0-37.0) g/dL RDW 13.7 (11.5-15.5) % Plt Count 282 (150-450) k/uL MPV 8.0 Neutrophils % 47 % Lymphocytes % 36 % Monocytes % 9 % Eosinophils % 4 % Basophils % 1 % Neutrophils # 2.5 (1.3-7.7) k/uL Lymphocytes # 1.9 (1.0-4.8) k/uL Monocytes # 0.5 (0-1.0) k/uL Eosinophils # 0.2 (0-0.7) k/uL Basophils # 0.1 (0-0.2) k/uL Hypochromasia Slight PT 10.8 (10.0-12.5) sec INR 1.0 (<1.2) Sodium 139 (137-145) mmol/L Potassium 4.6 (3.5-5.1) mmol/L Chloride 112 H (98-107) mmol/L Carbon Dioxide 20 L (22-30) mmol/L Anion Gap 7 mmol/L BUN 33 H (9-20) mg/dL Creatinine 1.77 H (0.66-1.25) mg/dL Est GFR (CKD-EPI)AfAm 42 (>60 ml/min/1.73 sqM) Est GFR (CKD-EPI)NonAf 37 (>60 ml/min/1.73 sqM) Glucose 105 H (74-99) mg/dL Plasma Lactic Acid Corby (0.7-2.0) mmol/L Calcium 9.7 (8.4-10.2) mg/dL Total Bilirubin 0.4 (0.2-1.3) mg/dL AST 25 (17-59) U/L ALT 10 (4-49) U/L Alkaline Phosphatase 81 (38-126) U/L Troponin I (0.000-0.034) ng/mL Total Protein 7.8 (6.3-8.2) g/dL Albumin 4.5 (3.5-5.0) g/dL Urine Color Urine Appearance (Clear) Urine pH (5.0-8.0) Ur Specific Clinton (1.001-1.035) Urine Protein (Negative) Urine Glucose (UA) (Negative) Urine Ketones (Negative) Urine Blood (Negative) Urine Nitrite (Negative) Urine Bilirubin (Negative) Urine Urobilinogen (<2.0) mg/dL Ur Leukocyte Esterase (Negative) 11/27/24 11/27/24 11/27/24 Range/Units 00:06 00:06 01:41 WBC (3.8-10.6) k/uL RBC (4.30-5.90) m/uL Hgb (13.0-17.5) gm/dL Hct (39.0-53.0) % MCV (80.0-100.0) fL MCH (25.0-35.0) pg MCHC (31.0-37.0) g/dL RDW (11.5-15.5) % Plt Count (150-450) k/uL MPV Neutrophils % % Lymphocytes % % Monocytes % % Eosinophils % % Basophils % % Neutrophils # (1.3-7.7) k/uL Lymphocytes # (1.0-4.8) k/uL Monocytes # (0-1.0) k/uL Eosinophils # (0-0.7) k/uL Basophils # (0-0.2) k/uL Hypochromasia PT (10.0-12.5) sec INR (<1.2) Sodium (137-145) mmol/L Potassium (3.5-5.1) mmol/L Chloride (98-107) mmol/L Carbon Dioxide (22-30) mmol/L Anion Gap mmol/L BUN (9-20) mg/dL Creatinine (0.66-1.25) mg/dL Est GFR (CKD-EPI)AfAm (>60 ml/min/1.73 sqM) Est GFR (CKD-EPI)NonAf (>60 ml/min/1.73 sqM) Glucose (74-99) mg/dL Plasma Lactic Acid Corby 0.6 L (0.7-2.0) mmol/L Calcium (8.4-10.2) mg/dL Total Bilirubin (0.2-1.3) mg/dL AST (17-59) U/L ALT (4-49) U/L Alkaline Phosphatase (38-126) U/L Troponin I <0.012 (0.000-0.034) ng/mL Total Protein (6.3-8.2) g/dL Albumin (3.5-5.0) g/dL Urine Color Colorless Urine Appearance Clear (Clear) Urine pH 6.0 (5.0-8.0) Ur Specific [place] 1.013 (1.001-1.035) Urine Protein Trace H (Negative) Urine Glucose (UA) Negative (Negative) Urine Ketones Negative (Negative) Urine Blood Negative (Negative) Urine Nitrite Negative (Negative) Urine Bilirubin Negative (Negative) Urine Urobilinogen <2.0 (<2.0) mg/dL Ur Leukocyte Esterase Negative (Negative) Disposition Clinical Impression: Dizziness Disposition: HOME SELF-CARE Condition: Good Instructions (If sedation given, give patient instructions): Dizziness (ED) Additional Instructions: Follow-up with your PCP. Report back to ER with any new or worsening symptoms. Prescriptions: Meclizine [Antivert] 25 mg PO BID PRN #20 tab PRN Reason: Vertigo Is patient prescribed a controlled substance at d/c from ED?: No Referrals: Roby Connolly MD [Primary Care Provider] - 1-2 days Time of Disposition: 02:09
--- NOTE | 2024-11-27 | CT ---
EXAM: CT Head Without Intravenous Contrast CLINICAL HISTORY: Dizziness TECHNIQUE: Axial computed tomography images of the head/brain without intravenous contrast. CTDI is 49.1 mGy and DLP is 1154.4 mGy-cm. This CT exam was performed using one or more of the following dose reduction techniques: automated exposure control, adjustment of the mA and/or kV according to patient size, and/or use of iterative reconstruction technique. COMPARISON: 11/16/2021. FINDINGS: Brain: Age-appropriate generalized atrophy. No acute stroke. Mild supratentorial periventricular and subcortical white matter changes. No acute hemorrhage or abnormal extra-axial fluid collection. Ventricles: No hydrocephalus. No midline shift. Bones/joints: Unremarkable. No acute fracture. Soft tissues: Unremarkable. Sinuses: Unremarkable as visualized. No acute sinusitis. IMPRESSION: No acute abnormality. Non-specific white matter changes, most commonly seen with small vessel disease.
[2024-11-27 00:19] LABS: Basophils # (A) 0.1 k/uL (0-0.2); Basophils % (A) 1 %; Eosinophils # (A) 0.2 k/uL (0-0.7); Eosinophils % (A) 4 %; HCT 40.6 % (39.0-53.0); Hypochromasia Slight; Lymphocytes # (A) 1.9 k/uL (1.0-4.8); Lymphocytes % (A) 36 %; MCH 31.2 pg (25.0-35.0); MCHC 31.9 g/dL (31.0-37.0); MCV 97.8 fL (80.0-100.0); Monocytes # (A) 0.5 k/uL (0-1.0); Monocytes % (A) 9 %; Neutrophils # (A) 2.5 k/uL (1.3-7.7); Neutrophils % (A) 47 %; Platelet Count 282 k/uL (150-450); RBC 4.15 m/uL (4.30-5.90); RDW 13.7 % (11.5-15.5); WBC 5.3 k/uL (3.8-10.6)
[2024-11-27 00:23] VITALS: RESP 17
[2024-11-27 00:27] LABS: Prothrombin Time 10.8 sec (10.0-12.5)
[2024-11-27 00:31] LABS: ALT 10 U/L (4-49); AST 25 U/L (17-59); African American GFR (CKD) 42 (>60 ml/min/1.73 sqM); Albumin 4.5 g/dL (3.5-5.0); Alkaline Phosphatase 81 U/L (38-126); Anion Gap 7 mmol/L; Blood Urea Nitrogen 33 mg/dL (9-20); Calcium 9.7 mg/dL (8.4-10.2); Carbon Dioxide 20 mmol/L (22-30); Chloride 112 mmol/L (98-107); Glucose 105 mg/dL (74-99); Non-African American GFR(CKD) 37 (>60 ml/min/1.73 sqM); Potassium 4.6 mmol/L (3.5-5.1); Sodium 139 mmol/L (137-145); Total Bilirubin 0.4 mg/dL (0.2-1.3); Total Protein 7.8 g/dL (6.3-8.2)
[2024-11-27] MEDS ORDERED: MORPHINE SULFATE 2 MG/ML SYRINGE IVP STA (00:38)
[2024-11-27] MEDS: MECLIZINE 12.5 MG TAB PO STA (00:49)
[2024-11-27] MEDS: ONDANSETRON 4 MG/2 ML VIAL IVP STA (00:50)
[2024-11-27 01:58] LABS: Appearance,Urine Clear (Clear); Bilirubin,Urine Negative (Negative); Blood,Urine Negative (Negative); Color,Urine Colorless; Glucose,Urine (UA) Negative (Negative); Ketones,Urine Negative (Negative); Leukocyte Esterase,Urine Negative (Negative); Nitrite,Urine Negative (Negative); Protein,Urine Trace (Negative); Specific Gravity,Urine 1.013 (1.001-1.035); Urobilinogen,Urine <2.0 mg/dL (<2.0)
[2024-11-27 02:30] VITALS: BP 153/81; PULSE 58
== END 2024-11-27 02:29 | disposition home or self-care (01) ==
LOC: EC 22:19
DX: R42 Dizziness and giddiness (principal); Z88.5 Allergy status to narcotic agent
CPT/HCPCS: 36415; 80053; 83605; 84484; 85025; 85610; 81003; 70450; 99284; 96374; J2405